=== PATIENT | female | born 1935 | race African-American/Black ===

== ENCOUNTER → 2017-03-06 | Outpatient (CLI) | payer MEDICARE ==
[~2017-03-06] MED LIST: BYSTOLIC; DYAZIDE; LOSARTAN
== END | disposition home or self-care (01) ==
LOC: MAMMO 11:36
PROVIDERS: ATTEND Specialist
DX: Z12.31 Encounter for screening mammogram for malignant neoplasm of breast (principal)
CPT/HCPCS: G0202

== ENCOUNTER → 2018-04-09 | Outpatient (CLI) | payer MEDICARE | END | disposition home or self-care (01) | LOC: MAMMO 07:34 | PROVIDERS: ATTEND Specialist | DX: Z12.31 Encounter for screening mammogram for malignant neoplasm of breast (principal); R92.1 Mammographic calcification found on diagnostic imaging of breast | CPT/HCPCS: 77067 ==

== ENCOUNTER 2018-11-19 17:55 | Inpatient (IN) | payer MEDICARE ==
[~2018-11-19] VITALS: Ht 170.2 cm; Wt 113.4 kg
[2018-11-19] MEDS ORDERED: ALBUTEROL (0.083%) 2.5MG/3ML NEB HHN STA (18:35)
[2018-11-19] MEDS ORDERED: IPRATROPIUM BROMIDE (0.02%) 0.5MG/2.5ML NEB HHN STA (18:35)
[2018-11-19] MEDS ORDERED: FUROSEMIDE 20MG/2ML VIAL IVP ONE (18:45)
[2018-11-19] MEDS ORDERED: LEVOFLOXACIN 500MG PREMIX 100 ML IV ONE (18:45)
[2018-11-19] MEDS ORDERED: ASPIRIN 81MG TABLET PO ONE (18:45)
[2018-11-19 18:51] LABS: HEMATOCRIT. 40.9 % (36.0-48.0); HEMOGLOBIN. 13.5 g/dL (12.0-16.0); MEAN CORPUSCULAR HEMOGLOBIN 30.1 pg (28.0-32.0); MEAN CORPUSCULAR VOLUME 91.2 fL (81.0-99.0); MEAN PLATELET VOLUME 12.5 fl (7.4-10.4); PLATELET 251 x1000/uL (130-400); RED BLOOD CELL COUNT 4.49 mill/uL (4.2-5.4); RED CELL DISTRIBUTION WIDTH 15.4 % (11.6-14.6)
[2018-11-19 18:54] LABS: CHLORIDE 99 mEq/L (98-107)
[2018-11-19] MEDS ORDERED: ALBUTEROL (0.5%) 2.5MG/0.5ML NEB HHN ONE (18:55)
[2018-11-19] MEDS ORDERED: ALBUTEROL (0.083%) 2.5MG/3ML NEB ONE (18:55)
[2018-11-19 18:57] LABS: INR 1.1; PARTIAL THROMBOPLASTIN TIME 27.5 sec (23.4-31.0); PROTHROMBIN TIME 11.5 sec (9.1-11.1)
[2018-11-19 19:39] LABS: PLATELET ESTIMATE NORMAL
[2018-11-19 22:00] VITALS: BP 152/68
[2018-11-19] MEDS ORDERED: IPRATROPIUM/ALBUTEROL 0.5-3(2.5)MG/3ML NEB INH PRN (23:30)
[2018-11-19] MEDS ORDERED: GUAIFENESIN 200MG/10ML SUGAR FREE UDC PO PRN (23:30)
[2018-11-19] MEDS ORDERED: MAGNESIUM/ALUMINUM HYDROXIDE/SIMETHICONE 30ML UDC PO PRN (23:30)
[2018-11-19] MEDS ORDERED: LEVOFLOXACIN 750MG PREMIX 150 ML IV SCH (23:45)
[2018-11-19] MEDS: METHYLPREDNISOLONE SOD SUCC 125 MG/2 ML VIAL IV SCH (23:45)
[2018-11-19] MEDS: SODIUM CHLORIDE 0.9% 1,000 ML IV SCH (23:56)
[2018-11-20] VITALS (13 sets, daily range): BP systolic 116–168; BP diastolic 20–93
[2018-11-20] MEDS: IPRATROPIUM/ALBUTEROL 0.5-3(2.5)MG/3ML NEB INH SCH ×4 (01:32→20:53)
[2018-11-20 03:44] LABS: CLARITY URINE CLOUDY (CLEAR); COLOR URINE DARK YELLOW (YELLOW); KETONES URINE NEGATIVE (NEGATIVE); LEUKOCYTE ESTERASE URINE NEGATIVE (NEGATIVE); NITRITE URINE NEGATIVE (NEGATIVE); OCCULT BLOOD URINE NEGATIVE (NEGATIVE); PROTEIN URINE NEGATIVE (NEGATIVE); SPECIFIC GRAVITY URINE 1.014 (1.005-1.030)
[2018-11-20] MEDS: METHYLPREDNISOLONE SOD SUCC 125 MG/2 ML VIAL IV SCH ×2 (05:54→11:41)
[2018-11-20] MEDS: OMEPRAZOLE 20MG CAPSULE EXTENDED RELEASE PO SCH (05:55)
[2018-11-20 06:06] LABS: HEMATOCRIT. 35.5 % (36.0-48.0); HEMOGLOBIN. 11.8 g/dL (12.0-16.0); MEAN CORPUSCULAR HEMOGLOBIN 30.1 pg (28.0-32.0); MEAN CORPUSCULAR VOLUME 90.4 fL (81.0-99.0); MEAN PLATELET VOLUME 12.4 fl (7.4-10.4); PLATELET 226 x1000/uL (130-400); RED BLOOD CELL COUNT 3.93 mill/uL (4.2-5.4); RED CELL DISTRIBUTION WIDTH 15.2 % (11.6-14.6)
[2018-11-20 06:57] LABS: CHLORIDE 100 mEq/L (98-107)
[2018-11-20 07:05] LABS: PHOSPHORUS 4.8 mg/dL (2.5-4.9)
[2018-11-20 07:10] LABS: T4 FREE 0.69 ng/dL (0.76-1.46)
[2018-11-20] MEDS: GUAIFENESIN 600MG ER TABLET PO SCH ×2 (08:52→21:51)
[2018-11-20 09:13] LABS: CREATINE KINASE 230 IU/L (26-192)
[2018-11-20] MEDS: NEBIVOLOL HCL 5 MG TABLET PO SCH (11:42)
[2018-11-20] MEDS: METHYLPREDNISOLONE SOD SUCC 40 MG/ML VIAL IV SCH ×2 (14:15→21:37)
[2018-11-20] MEDS: AZITHROMYCIN 500 MG TABLET PO SCH (14:15)
[2018-11-20] MEDS: CEFTRIAXONE 1 G PREMIX 50 ML IV SCH (14:16)
[2018-11-20 14:53] LABS: PLATELET ESTIMATE NORMAL
[2018-11-20] MEDS: SODIUM CHLORIDE 0.9% 1,000 ML IV SCH (21:36)
[2018-11-20] MEDS: FLUTICASONE PROPIONATE 50MCG/SPRAY BOTTLE BOTHNSTRLS SCH (21:37)
[2018-11-20] MEDS: AMLODIPINE 5MG TABLET PO SCH (21:40)
[2018-11-21] VITALS (12 sets, daily range): BP systolic 103–161; BP diastolic 64–76
[2018-11-21] MEDS: IPRATROPIUM/ALBUTEROL 0.5-3(2.5)MG/3ML NEB INH SCH ×3 (02:43→20:50)
[2018-11-21] MEDS: METHYLPREDNISOLONE SOD SUCC 40 MG/ML VIAL IV SCH ×2 (05:51→12:15)
[2018-11-21] MEDS: OMEPRAZOLE 20MG CAPSULE EXTENDED RELEASE PO SCH (05:51)
[2018-11-21 07:19] LABS: HEMATOCRIT. 35.8 % (36.0-48.0); HEMOGLOBIN. 11.8 g/dL (12.0-16.0); MEAN CORPUSCULAR HEMOGLOBIN 29.6 pg (28.0-32.0); MEAN CORPUSCULAR VOLUME 90.3 fL (81.0-99.0); MEAN PLATELET VOLUME 11.7 fl (7.4-10.4); PLATELET 248 x1000/uL (130-400); RED BLOOD CELL COUNT 3.97 mill/uL (4.2-5.4); RED CELL DISTRIBUTION WIDTH 15.6 % (11.6-14.6)
[2018-11-21] MEDS: FLUTICASONE PROPIONATE 50MCG/SPRAY BOTTLE BOTHNSTRLS SCH ×2 (08:17→21:51)
[2018-11-21] MEDS: CEFTRIAXONE 1 G PREMIX 50 ML IV SCH (08:17)
[2018-11-21] MEDS: AMLODIPINE 5MG TABLET PO SCH ×2 (08:18→21:53)
[2018-11-21] MEDS: AZITHROMYCIN 500 MG TABLET PO SCH (08:18)
[2018-11-21] MEDS: GUAIFENESIN 600MG ER TABLET PO SCH ×2 (08:18→21:51)
[2018-11-21] MEDS: NEBIVOLOL HCL 5 MG TABLET PO SCH (08:18)
[2018-11-21 10:54] LABS: PLATELET ESTIMATE NORMAL
[2018-11-21] MEDS: SULFACETAMIDE SODIUM 10% OPHTH DROPS 15ML EACHEYE SCH ×4 (11:33→21:51)
[2018-11-21] MEDS: SODIUM CHLORIDE 0.9% 1,000 ML IV SCH (15:23)
[2018-11-21] MEDS ORDERED: LEVOFLOXACIN 500MG PREMIX 100 ML IV SCH (18:00)
[2018-11-21] MEDS: CLONIDINE 0.1MG TABLET PO PRN (18:23)
[2018-11-22] VITALS (13 sets, daily range): BP systolic 118–156; BP diastolic 51–94
[2018-11-22] MEDS: IPRATROPIUM/ALBUTEROL 0.5-3(2.5)MG/3ML NEB INH SCH ×3 (00:31→20:41)
[2018-11-22] MEDS: SODIUM CHLORIDE 0.9% 1,000 ML IV SCH ×2 (01:59→17:00)
[2018-11-22] MEDS: METHYLPREDNISOLONE SOD SUCC 40 MG/ML VIAL IV SCH ×3 (01:59→23:36)
[2018-11-22 07:20] LABS: HEMATOCRIT. 35.3 % (36.0-48.0); HEMOGLOBIN. 11.5 g/dL (12.0-16.0); MEAN CORPUSCULAR HEMOGLOBIN 29.6 pg (28.0-32.0); MEAN CORPUSCULAR VOLUME 90.8 fL (81.0-99.0); PLATELET 244 x1000/uL (130-400); RED BLOOD CELL COUNT 3.89 mill/uL (4.2-5.4); RED CELL DISTRIBUTION WIDTH 15.7 % (11.6-14.6)
[2018-11-22] MEDS: GUAIFENESIN 600MG ER TABLET PO SCH ×2 (08:32→21:00)
[2018-11-22] MEDS: FAMOTIDINE 20MG TABLET PO SCH (08:32)
[2018-11-22] MEDS: AMLODIPINE 5MG TABLET PO SCH ×2 (08:32→21:05)
[2018-11-22] MEDS: AZITHROMYCIN 500 MG TABLET PO SCH (08:32)
[2018-11-22] MEDS: NEBIVOLOL HCL 5 MG TABLET PO SCH (08:32)
[2018-11-22] MEDS: FLUTICASONE PROPIONATE 50MCG/SPRAY BOTTLE BOTHNSTRLS SCH ×2 (08:33→21:05)
[2018-11-22] MEDS: SULFACETAMIDE SODIUM 10% OPHTH DROPS 15ML EACHEYE SCH ×4 (08:33→21:06)
[2018-11-22] MEDS: CEFTRIAXONE 1 G PREMIX 50 ML IV SCH (08:33)
[2018-11-22 09:53] LABS: PLATELET ESTIMATE NORMAL
[2018-11-22] MEDS ORDERED: ONDANSETRON HCL 4MG/2ML INJ IV PRN (19:00)
[2018-11-22 19:06] LABS: ANTI-NUCLEAR ANTIBODIES DIRECT Negative (Negative)
[2018-11-22] MEDS: ONDANSETRON HCL 4MG/2ML INJ IV PRN (19:31)
[2018-11-22] MEDS: METOCLOPRAMIDE HCL 10MG/2ML VIAL IV SCH (23:11)
[2018-11-23] VITALS (12 sets, daily range): BP systolic 121–152; BP diastolic 52–77
[2018-11-23] MEDS: IPRATROPIUM/ALBUTEROL 0.5-3(2.5)MG/3ML NEB INH SCH ×4 (02:45→21:33)
[2018-11-23] MEDS: SODIUM CHLORIDE 0.9% 1,000 ML IV SCH ×2 (05:07→21:42)
[2018-11-23 05:22] LABS: COMPLEMENT C3 186 mg/dL (82-167)
[2018-11-23 06:04] LABS: CHLORIDE 113 mEq/L (98-107)
[2018-11-23 06:08] LABS: AMYLASE 116 IU/L (25-115)
[2018-11-23 06:35] LABS: HEMATOCRIT. 37.1 % (36.0-48.0); MEAN CORPUSCULAR HEMOGLOBIN 29.5 pg (28.0-32.0); MEAN CORPUSCULAR VOLUME 91.1 fL (81.0-99.0); MEAN PLATELET VOLUME 11.3 fl (7.4-10.4); PLATELET 243 x1000/uL (130-400); RED BLOOD CELL COUNT 4.07 mill/uL (4.2-5.4); RED CELL DISTRIBUTION WIDTH 15.2 % (11.6-14.6)
[2018-11-23] MEDS: METOCLOPRAMIDE HCL 10MG/2ML VIAL IV SCH ×3 (06:41→17:34)
[2018-11-23] MEDS: MORPHINE SULFATE 4 MG/ML CPJ (NOT FOR IM USE) IV PRN (06:45)
[2018-11-23] MEDS: GUAIFENESIN 600MG ER TABLET PO SCH ×2 (09:00→21:38)
[2018-11-23] MEDS: AZITHROMYCIN 500 MG TABLET PO SCH (09:00)
[2018-11-23] MEDS: NEBIVOLOL HCL 5 MG TABLET PO SCH (09:00)
[2018-11-23] MEDS: ONDANSETRON HCL 4MG/2ML INJ IV PRN (09:02)
[2018-11-23] MEDS: FAMOTIDINE 20MG TABLET PO SCH (09:02)
[2018-11-23] MEDS: CEFTRIAXONE 1 G PREMIX 50 ML IV SCH (09:03)
[2018-11-23] MEDS: FLUTICASONE PROPIONATE 50MCG/SPRAY BOTTLE BOTHNSTRLS SCH (09:04)
[2018-11-23] MEDS: SULFACETAMIDE SODIUM 10% OPHTH DROPS 15ML EACHEYE SCH ×4 (09:04→21:39)
[2018-11-23] MEDS: AMLODIPINE 5MG TABLET PO SCH ×2 (10:34→21:38)
[2018-11-23] MEDS: METHYLPREDNISOLONE SOD SUCC 40 MG/ML VIAL IV SCH (12:11)
[2018-11-24] VITALS (13 sets, daily range): BP systolic 128–168; BP diastolic 58–88
[2018-11-24] MEDS ORDERED: METRONIDAZOLE 1000 MG PREMIX 200 ML IV SCH (00:15)
[2018-11-24] MEDS: METOCLOPRAMIDE HCL 10MG/2ML VIAL IV SCH ×5 (00:31→23:55)
[2018-11-24] MEDS: METHYLPREDNISOLONE SOD SUCC 40 MG/ML VIAL IV SCH ×3 (00:31→23:55)
[2018-11-24] MEDS ORDERED: METRONIDAZOLE 500 MG IV SCH (02:00)
[2018-11-24] MEDS: IPRATROPIUM/ALBUTEROL 0.5-3(2.5)MG/3ML NEB INH SCH ×2 (02:02→19:58)
[2018-11-24] MEDS: MORPHINE SULFATE 4 MG/ML CPJ (NOT FOR IM USE) IV PRN (03:01)
[2018-11-24] MEDS ORDERED: DOCUSATE SODIUM 100MG CAPSULE PO SCH (05:30)
[2018-11-24 07:57] LABS: HEMATOCRIT. 38.5 % (36.0-48.0); HEMOGLOBIN. 12.4 g/dL (12.0-16.0); MEAN CORPUSCULAR HEMOGLOBIN 29.5 pg (28.0-32.0); MEAN CORPUSCULAR VOLUME 91.6 fL (81.0-99.0); MEAN PLATELET VOLUME 11.3 fl (7.4-10.4); PLATELET 252 x1000/uL (130-400); RED BLOOD CELL COUNT 4.21 mill/uL (4.2-5.4); RED CELL DISTRIBUTION WIDTH 15.2 % (11.6-14.6)
[2018-11-24] MEDS: METRONIDAZOLE 500 MG PREMIX 100 ML IV SCH ×3 (08:16→20:05)
[2018-11-24] MEDS: SODIUM CHLORIDE 0.45% 1,000 ML IV SCH ×2 (08:17→22:46)
[2018-11-24] MEDS: AZITHROMYCIN 500 MG TABLET PO SCH (09:09)
[2018-11-24] MEDS: SULFACETAMIDE SODIUM 10% OPHTH DROPS 15ML EACHEYE SCH ×4 (09:09→21:52)
[2018-11-24] MEDS: AMLODIPINE 5MG TABLET PO SCH ×2 (09:09→21:51)
[2018-11-24] MEDS: NEBIVOLOL HCL 5 MG TABLET PO SCH (09:10)
[2018-11-24] MEDS: FAMOTIDINE 20MG TABLET PO SCH (09:10)
[2018-11-24] MEDS: GUAIFENESIN 600MG ER TABLET PO SCH ×2 (09:17→21:51)
[2018-11-24] MEDS: CEFTRIAXONE 1 G PREMIX 50 ML IV SCH (09:17)
[2018-11-24] MEDS ORDERED: NA PHOS,M-B/NA PHOS,DI-BA ENEMA 118ML PR NR (09:45)
[2018-11-24 11:14] LABS: PLATELET ESTIMATE NORMAL
[2018-11-24] MEDS ORDERED: VANCOMYCIN 1250MG in DEXTROSE 5% WATER 250ML IV SCH (13:00)
[2018-11-24 16:09] LABS: PLATELET ESTIMATE NORMAL
[2018-11-24] MEDS: DOCUSATE SODIUM 250MG CAPSULE PO SCH (16:52)
[2018-11-24] MEDS: CEFEPIME 1,000 MG in DEXTROSE 5% WATER 50 ML IV SCH (16:53)
[2018-11-24] MEDS: HYDROMORPHONE HCL/PF 2MG/ML CPJ IV PRN (20:06)
[2018-11-25] VITALS (12 sets, daily range): BP systolic 122–164; BP diastolic 69–90
[2018-11-25] MEDS: IPRATROPIUM/ALBUTEROL 0.5-3(2.5)MG/3ML NEB INH SCH ×4 (01:33→20:00)
[2018-11-25] MEDS: METRONIDAZOLE 500 MG PREMIX 100 ML IV SCH ×4 (02:28→20:38)
[2018-11-25] MEDS: METOCLOPRAMIDE HCL 10MG/2ML VIAL IV SCH ×3 (05:44→17:02)
[2018-11-25 06:05] LABS: HEMATOCRIT. 38.6 % (36.0-48.0); HEMOGLOBIN. 12.2 g/dL (12.0-16.0); MEAN CORPUSCULAR HEMOGLOBIN 29.4 pg (28.0-32.0); MEAN CORPUSCULAR VOLUME 93.3 fL (81.0-99.0); MEAN PLATELET VOLUME 10.8 fl (7.4-10.4); PLATELET 229 x1000/uL (130-400); RED BLOOD CELL COUNT 4.14 mill/uL (4.2-5.4); RED CELL DISTRIBUTION WIDTH 15.7 % (11.6-14.6)
[2018-11-25] MEDS: SULFACETAMIDE SODIUM 10% OPHTH DROPS 15ML EACHEYE SCH ×4 (08:31→20:38)
[2018-11-25] MEDS: DOCUSATE SODIUM 250MG CAPSULE PO SCH ×2 (08:31→16:53)
[2018-11-25] MEDS: FAMOTIDINE 20MG TABLET PO SCH (08:32)
[2018-11-25] MEDS: GUAIFENESIN 600MG ER TABLET PO SCH ×2 (08:32→20:38)
[2018-11-25] MEDS: AZITHROMYCIN 500 MG TABLET PO SCH (08:32)
[2018-11-25] MEDS: AMLODIPINE 5MG TABLET PO SCH ×2 (08:32→20:38)
[2018-11-25] MEDS: NEBIVOLOL HCL 5 MG TABLET PO SCH (08:32)
[2018-11-25] MEDS: SODIUM CHLORIDE 0.45% 1,000 ML IV SCH ×2 (08:45→12:21)
[2018-11-25] MEDS: MORPHINE SULFATE 4 MG/ML CPJ (NOT FOR IM USE) IV PRN ×2 (08:45→15:46)
[2018-11-25] MEDS: CEFEPIME 1,000 MG in DEXTROSE 5% WATER 50 ML IV SCH (11:58)
[2018-11-25] MEDS: VANCOMYCIN 750 MG PREMIX 150 ML IV SCH (13:33)
[2018-11-25] MEDS: HYDROMORPHONE HCL/PF 2MG/ML CPJ IV PRN (17:57)
[2018-11-25 20:36] LABS: PLATELET ESTIMATE NORMAL
[2018-11-26] VITALS (10 sets, daily range): BP systolic 124–150; BP diastolic 64–84
[2018-11-26] MEDS: METOCLOPRAMIDE HCL 10MG/2ML VIAL IV SCH ×4 (01:05→17:15)
[2018-11-26] MEDS: IPRATROPIUM/ALBUTEROL 0.5-3(2.5)MG/3ML NEB INH SCH ×4 (01:50→20:25)
[2018-11-26] MEDS: SODIUM CHLORIDE 0.45% 1,000 ML IV SCH (03:04)
[2018-11-26] MEDS: METRONIDAZOLE 500 MG PREMIX 100 ML IV SCH ×4 (03:07→20:00)
[2018-11-26] MEDS: HYDROMORPHONE HCL/PF 2MG/ML CPJ IV PRN ×2 (06:41→11:00)
[2018-11-26 07:07] LABS: HEMATOCRIT. 39.4 % (36.0-48.0); HEMOGLOBIN. 12.9 g/dL (12.0-16.0); MEAN PLATELET VOLUME 10.7 fl (7.4-10.4); PLATELET 205 x1000/uL (130-400); RED BLOOD CELL COUNT 4.29 mill/uL (4.2-5.4); RED CELL DISTRIBUTION WIDTH 15.9 % (11.6-14.6)
[2018-11-26] MEDS: AMLODIPINE 5MG TABLET PO SCH ×2 (08:19→22:08)
[2018-11-26] MEDS: NEBIVOLOL HCL 5 MG TABLET PO SCH (08:19)
[2018-11-26] MEDS: SULFACETAMIDE SODIUM 10% OPHTH DROPS 15ML EACHEYE SCH ×4 (08:20→22:09)
[2018-11-26] MEDS: DOCUSATE SODIUM 250MG CAPSULE PO SCH ×2 (08:20→17:15)
[2018-11-26] MEDS: GUAIFENESIN 600MG ER TABLET PO SCH ×2 (08:20→22:08)
[2018-11-26] MEDS: FAMOTIDINE 20MG TABLET PO SCH (08:20)
[2018-11-26] MEDS: AZITHROMYCIN 500 MG TABLET PO SCH (08:20)
[2018-11-26] MEDS ORDERED: PREDNISONE 20MG TABLET PO SCH (09:00)
[2018-11-26] MEDS: CEFEPIME 1,000 MG in DEXTROSE 5% WATER 50 ML IV SCH (10:40)
[2018-11-26] MEDS: VANCOMYCIN 750 MG PREMIX 150 ML IV SCH (12:34)
[2018-11-26 14:03] LABS: PLATELET ESTIMATE NORMAL
[2018-11-26] MEDS: BISACODYL 5MG TABLET PO PRN (14:38)
[2018-11-26] MEDS ORDERED: ENOXAPARIN 30MG/0.3ML SYR SUBCUT SCH (16:00)
[2018-11-26] MEDS: MORPHINE SULFATE 4 MG/ML CPJ (NOT FOR IM USE) IV PRN (17:17)
[2018-11-27] VITALS (8 sets, daily range): BP systolic 118–152; BP diastolic 48–91
[2018-11-27] MEDS: IPRATROPIUM/ALBUTEROL 0.5-3(2.5)MG/3ML NEB INH SCH ×4 (00:35→20:45)
[2018-11-27] MEDS: MORPHINE SULFATE 4 MG/ML CPJ (NOT FOR IM USE) IV PRN (00:38)
[2018-11-27] MEDS: METOCLOPRAMIDE HCL 10MG/2ML VIAL IV SCH ×4 (00:58→17:44)
[2018-11-27] MEDS: CLONIDINE 0.1MG TABLET PO PRN (01:10)
[2018-11-27 06:41] LABS: HEMATOCRIT. 38.1 % (36.0-48.0); HEMOGLOBIN. 12.2 g/dL (12.0-16.0); MEAN CORPUSCULAR HEMOGLOBIN 30.1 pg (28.0-32.0); MEAN CORPUSCULAR VOLUME 93.7 fL (81.0-99.0); MEAN PLATELET VOLUME 10.6 fl (7.4-10.4); PLATELET 164 x1000/uL (130-400); RED BLOOD CELL COUNT 4.07 mill/uL (4.2-5.4); RED CELL DISTRIBUTION WIDTH 15.4 % (11.6-14.6)
[2018-11-27 07:35] LABS: CHLORIDE 109 mEq/L (98-107)
[2018-11-27] MEDS: METRONIDAZOLE 500 MG PREMIX 100 ML IV SCH ×3 (07:55→21:45)
[2018-11-27] MEDS: SODIUM CHLORIDE 0.45% 1,000 ML IV SCH (07:55)
[2018-11-27] MEDS: PREDNISONE 20MG TABLET PO SCH (08:25)
[2018-11-27] MEDS: AZITHROMYCIN 500 MG TABLET PO SCH (08:25)
[2018-11-27] MEDS: SULFACETAMIDE SODIUM 10% OPHTH DROPS 15ML EACHEYE SCH ×4 (08:25→21:45)
[2018-11-27] MEDS: DOCUSATE SODIUM 250MG CAPSULE PO SCH ×2 (08:25→17:44)
[2018-11-27] MEDS: BISACODYL 5MG TABLET PO PRN (08:26)
[2018-11-27] MEDS: FAMOTIDINE 20MG TABLET PO SCH (08:26)
[2018-11-27] MEDS: AMLODIPINE 5MG TABLET PO SCH ×2 (08:26→21:43)
[2018-11-27] MEDS: GUAIFENESIN 600MG ER TABLET PO SCH ×2 (08:26→21:43)
[2018-11-27] MEDS: NEBIVOLOL HCL 5 MG TABLET PO SCH (08:27)
[2018-11-27] MEDS: CEFEPIME 1,000 MG in DEXTROSE 5% WATER 50 ML IV SCH (12:08)
[2018-11-27 12:13] LABS: PLATELET ESTIMATE NORMAL
[2018-11-27] MEDS: VANCOMYCIN 750 MG PREMIX 150 ML IV SCH (13:16)
[2018-11-28] VITALS (12 sets, daily range): BP systolic 119–152; BP diastolic 43–86
[2018-11-28] MEDS: METOCLOPRAMIDE HCL 10MG/2ML VIAL IV SCH ×4 (00:01→17:27)
[2018-11-28] MEDS: IPRATROPIUM/ALBUTEROL 0.5-3(2.5)MG/3ML NEB INH SCH ×4 (01:53→20:18)
[2018-11-28] MEDS ORDERED: LIDOCAINE HCL 1% 20ML VIAL (Pyxis) INJ ONE (07:45)
[2018-11-28] MEDS ORDERED: SODIUM BICARBONATE 4% (2.4MEQ) 5ML VIAL IV ONE (07:45)
[2018-11-28] MEDS: AMLODIPINE 5MG TABLET PO SCH ×2 (07:52→21:05)
[2018-11-28] MEDS: DOCUSATE SODIUM 250MG CAPSULE PO SCH ×2 (07:52→17:27)
[2018-11-28] MEDS: PREDNISONE 20MG TABLET PO SCH (07:52)
[2018-11-28] MEDS: SULFACETAMIDE SODIUM 10% OPHTH DROPS 15ML EACHEYE SCH (07:52)
[2018-11-28] MEDS: NEBIVOLOL HCL 5 MG TABLET PO SCH (07:52)
[2018-11-28] MEDS: FAMOTIDINE 20MG TABLET PO SCH (07:53)
[2018-11-28] MEDS: BISACODYL 5MG TABLET PO PRN (07:53)
[2018-11-28] MEDS: GUAIFENESIN 600MG ER TABLET PO SCH ×2 (07:53→21:05)
[2018-11-28 08:12] LABS: HEMATOCRIT. 38.5 % (36.0-48.0); HEMOGLOBIN. 12.1 g/dL (12.0-16.0); MEAN CORPUSCULAR HEMOGLOBIN 29.7 pg (28.0-32.0); MEAN CORPUSCULAR VOLUME 94.4 fL (81.0-99.0); MEAN PLATELET VOLUME 10.4 fl (7.4-10.4); PLATELET 183 x1000/uL (130-400); RED BLOOD CELL COUNT 4.07 mill/uL (4.2-5.4); RED CELL DISTRIBUTION WIDTH 15.2 % (11.6-14.6)
[2018-11-28] MEDS: METRONIDAZOLE 500 MG PREMIX 100 ML IV SCH ×2 (09:41→21:05)
[2018-11-28 10:00] LABS: PLATELET ESTIMATE NORMAL
[2018-11-28] MEDS: CEFEPIME 1,000 MG in DEXTROSE 5% WATER 50 ML IV SCH (12:38)
[2018-11-28] MEDS: VANCOMYCIN 750 MG PREMIX 150 ML IV SCH (12:38)
[2018-11-28] MEDS ORDERED: METRONIDAZOLE 500 MG PREMIX 100 ML IV SCH (21:00)
[2018-11-29] VITALS (16 sets, daily range): BP systolic 23–183; BP diastolic 23–116
[2018-11-29] MEDS: METOCLOPRAMIDE HCL 10MG/2ML VIAL IV SCH ×4 (00:16→23:10)
[2018-11-29] MEDS: IPRATROPIUM/ALBUTEROL 0.5-3(2.5)MG/3ML NEB INH SCH ×4 (01:22→20:46)
[2018-11-29 06:38] LABS: HEMATOCRIT. 34.8 % (36.0-48.0); HEMOGLOBIN. 11.4 g/dL (12.0-16.0); MEAN CORPUSCULAR HEMOGLOBIN 30.1 pg (28.0-32.0); PLATELET 150 x1000/uL (130-400); RED BLOOD CELL COUNT 3.78 mill/uL (4.2-5.4); RED CELL DISTRIBUTION WIDTH 15.2 % (11.6-14.6)
[2018-11-29] MEDS: FAMOTIDINE 20MG TABLET PO SCH (08:09)
[2018-11-29] MEDS: GUAIFENESIN 600MG ER TABLET PO SCH (08:09)
[2018-11-29] MEDS: DOCUSATE SODIUM 250MG CAPSULE PO SCH (08:09)
[2018-11-29] MEDS: AMLODIPINE 5MG TABLET PO SCH ×2 (08:09→21:00)
[2018-11-29] MEDS: NEBIVOLOL HCL 5 MG TABLET PO SCH (08:10)
[2018-11-29] MEDS: PREDNISONE 20MG TABLET PO SCH (08:10)
[2018-11-29] MEDS: METRONIDAZOLE 500 MG PREMIX 100 ML IV SCH ×2 (08:13→23:00)
[2018-11-29] MEDS: CEFEPIME 1,000 MG in DEXTROSE 5% WATER 50 ML IV SCH (10:09)
[2018-11-29] MEDS: MORPHINE SULFATE 4 MG/ML CPJ (NOT FOR IM USE) IV PRN ×2 (10:48→22:39)
[2018-11-29] MEDS: VANCOMYCIN 750 MG PREMIX 150 ML IV SCH (12:41)
[2018-11-29] MEDS ORDERED: ALBUMIN HUMAN 12.5G/250ML (5%) IV ONE (12:59)
[2018-11-29] MEDS ORDERED: POTASSIUM CHLORIDE 20MEQ TABLET SR PO NR (13:00)
[2018-11-29] MEDS ORDERED: IOHEXOL-300 100 ML BOTTLE ONE (13:09)
[2018-11-29] MEDS ORDERED: FENTANYL CITRATE/PF 50MCG/ML 2ML VIAL ONE ×2 (13:12→14:07)
[2018-11-29] MEDS ORDERED: EPHEDRINE SULFATE 50MG/ML VIAL ONE (13:12)
[2018-11-29] MEDS ORDERED: GLYCOPYRROLATE 0.2 MG/ML 2ML VIAL ONE (13:12)
[2018-11-29] MEDS ORDERED: NEOSTIGMINE METHYLSULFATE 1MG/ML 10 ML VIAL ONE (13:12)
[2018-11-29] MEDS ORDERED: ROCURONIUM BROMIDE 10MG/ML VIAL 5ML IV ONE ×2 (13:12→14:11)
[2018-11-29] MEDS ORDERED: PHENYLEPHRINE HCL 10 MG/ML 1ML (IV VIAL) IV ONE (13:12)
[2018-11-29] MEDS ORDERED: ONDANSETRON HCL 4MG/2ML INJ ONE (13:12)
[2018-11-29] MEDS ORDERED: SUCCINYLCHOLINE CHLORIDE 200MG/10ML IV ONE (13:12)
[2018-11-29] MEDS ORDERED: PROPOFOL 200MG/20ML VIAL IV ONE (13:12)
[2018-11-29] MEDS ORDERED: SODIUM CHLORIDE 0.9% 10ML VIAL ONE (13:12)
[2018-11-29] MEDS ORDERED: MIDAZOLAM HCL 2 MG/2 ML VIAL ONE (13:12)
[2018-11-29] MEDS ORDERED: METOCLOPRAMIDE HCL 10MG/2ML VIAL ONE (13:12)
[2018-11-29] MEDS ORDERED: ETOMIDATE 2MG/ML 10ML VIAL IV ONE (13:13)
[2018-11-29] MEDS ORDERED: BUPIVACAINE HCL 0.5% (5MG/ML) 50ML ONE (13:14)
[2018-11-29] MEDS ORDERED: BACITRACIN 50,000 UNITS/VIAL ONE (13:15)
[2018-11-29] MEDS ORDERED: ONDANSETRON HCL 4MG/2ML INJ IV PRN ×2 (15:00→15:15)
[2018-11-29] MEDS ORDERED: ACETAMINOPHEN 650MG SUPP PR PRN (15:00)
[2018-11-29] MEDS ORDERED: SODIUM CHLORIDE 0.9% 1,000 ML IV ONE (15:01)
[2018-11-29] MEDS ORDERED: HYDROMORPHONE HCL/PF 2MG/ML CPJ IV PRN (15:15)
[2018-11-29] MEDS ORDERED: MORPHINE SULFATE 2 MG/ML CPJ (NOT FOR IM USE) IV PRN (15:15)
[2018-11-29] MEDS ORDERED: MEPERIDINE HCL/PF 25MG/ML CPJ IV PRN (15:15)
[2018-11-29] MEDS ORDERED: METRONIDAZOLE 500 MG PREMIX 100 ML IV SCH (16:00)
[2018-11-29 16:27] LABS: HEMATOCRIT 36.6 % (36.0-48.0); HEMOGLOBIN 11.7 g/dL (12.0-16.0); MEAN CORPUSCULAR HEMOGLOBIN 29.9 pg (28.0-32.0); MEAN CORPUSCULAR VOLUME 93.5 fL (81.0-99.0); PLATELET 171 x1000/uL (130-400); RED BLOOD CELL COUNT 3.91 mill/uL (4.2-5.4); RED CELL DISTRIBUTION WIDTH 15.6 % (11.6-14.6)
[2018-11-29 17:57] LABS: BG BASE EXCESS -11.9 mmol/L (-2.0-2.0); BG CARBOXYHEMOGLOBIN 0.3 % (0.5-1.5); BG DEOXYHEMOGLOBIN 5.1 % (0.0-5.0); BG FRACTION INSPIRED OXYGEN 50; BG HCO3 ACT 14.5 mmol/L (22.0-26.0); BG METHEMOGLOBIN 0.2 % (0.0-1.5); BG OXYGEN SATURATION 94.9 % (92.0-98.5); BG OXYHEMOGLOBIN 94.4 % (94.0-97.0); BG PCO2 34.5 mmHg (35.0-45.0); BG PH 7.241 (7.350-7.450); BG PO2 83.6 mmHg (75.0-100.0); BG SAMPLE SITE A-LINE; BG TIDAL VOLUME(mL) 500 mL; BG TOTAL HEMOGLOBIN 11.2 g/dL (12.0-18.0); BG VENT MODE VENT - A/C; BG VENT RATE 10 set
[2018-11-29] MEDS ORDERED: ALBUMIN HUMAN 25GM/500ML (5%) IV ONE (19:00)
[2018-11-29] MEDS ORDERED: ALBUMIN HUMAN 25GM/500ML (5%) IV SCH (19:00)
[2018-11-29] MEDS ORDERED: NOREPINEPHRINE 8 MG in DEXTROSE 5% WATER 250 ML IV PRN (19:45)
[2018-11-29 20:56] LABS: BG BASE EXCESS -12.2 mmol/L (-2.0-2.0); BG CARBOXYHEMOGLOBIN 0.3 % (0.5-1.5); BG FRACTION INSPIRED OXYGEN 50; BG METHEMOGLOBIN 0.4 % (0.0-1.5); BG OXYHEMOGLOBIN 98.3 % (94.0-97.0); BG PCO2 27.5 mmHg (35.0-45.0); BG PH 7.293 (7.350-7.450); BG PO2 185.2 mmHg (75.0-100.0); BG SAMPLE SITE A-LINE; BG TIDAL VOLUME(mL) 500 mL; BG VENT MODE VENT - A/C
[2018-11-29] MEDS: DEXT 5%/0.45% NACL KCL 20MEQ/L 1,000 ML IV SCH (22:35)
[2018-11-29] MEDS: FAMOTIDINE 20MG/2ML VIAL IV SCH (23:11)
[2018-11-29] MEDS: PROPOFOL 10MG/ML 100ML 100 ML IV PRN (23:14)
[2018-11-30] VITALS (92 sets, daily range): BP systolic 62–159; BP diastolic 29–90
[2018-11-30] MEDS: DOCUSATE SODIUM 250MG CAPSULE PO SCH ×3 (00:59→17:00)
[2018-11-30] MEDS: GUAIFENESIN 600MG ER TABLET PO SCH ×3 (01:01→21:00)
[2018-11-30] MEDS: DEXT 5%/0.45% NACL KCL 20MEQ/L 1,000 ML IV SCH ×3 (01:02→21:35)
[2018-11-30] MEDS: IPRATROPIUM/ALBUTEROL 0.5-3(2.5)MG/3ML NEB INH SCH ×4 (03:01→20:10)
[2018-11-30] MEDS: MEROPENEM 1,000 MG in SODIUM CHLORIDE 0.9% 100 ML IV SCH ×2 (03:36→15:46)
[2018-11-30] MEDS: FLUCONAZOLE 400MG/200ML BAG 200 ML IV SCH (03:40)
[2018-11-30] MEDS: MORPHINE SULFATE 4 MG/ML CPJ (NOT FOR IM USE) IV PRN (03:42)
[2018-11-30] MEDS: METOCLOPRAMIDE HCL 10MG/2ML VIAL IV SCH ×5 (05:45→23:07)
[2018-11-30 08:18] LABS: HEMATOCRIT. 29.9 % (36.0-48.0); HEMOGLOBIN. 9.6 g/dL (12.0-16.0); MEAN CORPUSCULAR HEMOGLOBIN 30.5 pg (28.0-32.0); MEAN CORPUSCULAR VOLUME 95.3 fL (81.0-99.0); MEAN PLATELET VOLUME 9.4 fl (7.4-10.4); RED BLOOD CELL COUNT 3.14 mill/uL (4.2-5.4); RED CELL DISTRIBUTION WIDTH 15.4 % (11.6-14.6)
[2018-11-30 08:25] LABS: PLATELET 37 x1000/uL (130-400)
[2018-11-30] MEDS: PROPOFOL 10MG/ML 100ML 100 ML IV PRN ×3 (08:35→23:07)
[2018-11-30 08:54] LABS: BG BASE EXCESS -11.6 mmol/L (-2.0-2.0); BG DEOXYHEMOGLOBIN 2.1 % (0.0-5.0); BG FRACTION INSPIRED OXYGEN 50; BG HCO3 ACT 12.3 mmol/L (22.0-26.0); BG METHEMOGLOBIN 0.4 % (0.0-1.5); BG OXYGEN SATURATION 97.9 % (92.0-98.5); BG OXYHEMOGLOBIN 97.5 % (94.0-97.0); BG PCO2 21.7 mmHg (35.0-45.0); BG PO2 108.5 mmHg (75.0-100.0); BG SAMPLE SITE A-LINE; BG TIDAL VOLUME(mL) 500 mL; BG TOTAL HEMOGLOBIN 8.5 g/dL (12.0-18.0); BG VENT MODE VENT - A/C; BG VENT RATE 16 set
[2018-11-30] MEDS ORDERED: MEROPENEM 1,000 MG in SODIUM CHLORIDE 0.9% 100 ML IV SCH (09:00)
[2018-11-30] MEDS: AMLODIPINE 5MG TABLET PO SCH (09:00)
[2018-11-30] MEDS ORDERED: FLUCONAZOLE 400MG/200ML BAG 200 ML IV SCH (09:15)
[2018-11-30 09:50] LABS: PLATELET ESTIMATE MARKEDLY DECREASED
[2018-11-30 13:46] LABS: PLATELET ESTIMATE NORMAL
[2018-11-30] MEDS: FAMOTIDINE 20MG/2ML VIAL IV SCH (16:11)
[2018-12-01] VITALS (64 sets, daily range): BP systolic 83–175; BP diastolic 36–148
[2018-12-01] MEDS: IPRATROPIUM/ALBUTEROL 0.5-3(2.5)MG/3ML NEB INH SCH ×4 (01:48→20:28)
[2018-12-01] MEDS: FLUCONAZOLE 400MG/200ML BAG 200 ML IV SCH (02:56)
[2018-12-01] MEDS: MEROPENEM 1,000 MG in SODIUM CHLORIDE 0.9% 100 ML IV SCH ×2 (04:05→18:51)
[2018-12-01] MEDS: PROPOFOL 10MG/ML 100ML 100 ML IV PRN ×3 (05:01→16:31)
[2018-12-01] MEDS: METOCLOPRAMIDE HCL 10MG/2ML VIAL IV SCH ×3 (05:57→18:51)
[2018-12-01 06:36] LABS: PHOSPHORUS 1.6 mg/dL (2.5-4.9)
[2018-12-01 06:46] LABS: HEMATOCRIT. 23.2 % (36.0-48.0); HEMOGLOBIN. 7.7 g/dL (12.0-16.0); MEAN CORPUSCULAR HEMOGLOBIN 30.6 pg (28.0-32.0); MEAN CORPUSCULAR VOLUME 92.5 fL (81.0-99.0); RED BLOOD CELL COUNT 2.51 mill/uL (4.2-5.4); RED CELL DISTRIBUTION WIDTH 15.5 % (11.6-14.6)
[2018-12-01 06:54] LABS: PLATELET 21 x1000/uL (130-400)
[2018-12-01] MEDS: DEXT 5%/0.45% NACL 1000ML 1,000 ML IV SCH ×2 (07:00→08:52)
[2018-12-01] MEDS ORDERED: CALCIUM GLUCONATE 1,000 MG in DEXT 5% WATER 90 ML IV SCH (07:30)
[2018-12-01 08:44] LABS: BG BASE EXCESS -8.6 mmol/L (-2.0-2.0); BG CARBOXYHEMOGLOBIN 0.3 % (0.5-1.5); BG FRACTION INSPIRED OXYGEN 50; BG HCO3 ACT 15.1 mmol/L (22.0-26.0); BG METHEMOGLOBIN 0.3 % (0.0-1.5); BG OXYHEMOGLOBIN 98.4 % (94.0-97.0); BG PCO2 25.8 mmHg (35.0-45.0); BG PH 7.386 (7.350-7.450); BG PO2 177.5 mmHg (75.0-100.0); BG SAMPLE SITE A-LINE; BG TIDAL VOLUME(mL) 500 mL; BG TOTAL HEMOGLOBIN 9.9 g/dL (12.0-18.0); BG VENT MODE VENT - A/C; BG VENT RATE 16 set
[2018-12-01] MEDS: GUAIFENESIN 600MG ER TABLET PO SCH ×2 (08:45→20:30)
[2018-12-01] MEDS: DOCUSATE SODIUM 250MG CAPSULE PO SCH ×2 (08:45→17:00)
[2018-12-01 10:33] LABS: PLATELET ESTIMATE MARKEDLY DECREASED
[2018-12-01 10:36] LABS: BG BASE EXCESS -9.5 mmol/L (-2.0-2.0); BG CARBOXYHEMOGLOBIN 0.3 % (0.5-1.5); BG DEOXYHEMOGLOBIN 2.7 % (0.0-5.0); BG FRACTION INSPIRED OXYGEN 50; BG HCO3 ACT 14.4 mmol/L (22.0-26.0); BG METHEMOGLOBIN 0.3 % (0.0-1.5); BG OXYGEN SATURATION 97.3 % (92.0-98.5); BG OXYHEMOGLOBIN 96.7 % (94.0-97.0); BG PH 7.378 (7.350-7.450); BG PO2 98.2 mmHg (75.0-100.0); BG PRESSURE SUPPORT 14; BG SAMPLE SITE A-LINE; BG TIDAL VOLUME(mL) 500 mL; BG TOTAL HEMOGLOBIN 8.7 g/dL (12.0-18.0); BG VENT MODE VENT - SIMV; BG VENT RATE 10 set
[2018-12-01] MEDS: FAMOTIDINE 20MG/2ML VIAL IV SCH (18:51)
[2018-12-02] VITALS (91 sets, daily range): BP systolic 85–185; BP diastolic -3–114
[2018-12-02] MEDS: METOCLOPRAMIDE HCL 10MG/2ML VIAL IV SCH ×4 (00:43→17:55)
[2018-12-02] MEDS: PROPOFOL 10MG/ML 100ML 100 ML IV PRN ×2 (01:02→06:01)
[2018-12-02] MEDS: FLUCONAZOLE 400MG/200ML BAG 200 ML IV SCH (02:04)
[2018-12-02] MEDS: IPRATROPIUM/ALBUTEROL 0.5-3(2.5)MG/3ML NEB INH SCH ×4 (02:30→20:27)
[2018-12-02] MEDS: MEROPENEM 1,000 MG in SODIUM CHLORIDE 0.9% 100 ML IV SCH ×2 (04:10→17:55)
[2018-12-02 05:37] LABS: HEMATOCRIT. 26.1 % (36.0-48.0); HEMOGLOBIN. 8.6 g/dL (12.0-16.0); MEAN CORPUSCULAR HEMOGLOBIN 30.1 pg (28.0-32.0); MEAN CORPUSCULAR VOLUME 90.9 fL (81.0-99.0); PLATELET 111 x1000/uL (130-400); RED BLOOD CELL COUNT 2.87 mill/uL (4.2-5.4); RED CELL DISTRIBUTION WIDTH 15.8 % (11.6-14.6)
[2018-12-02 06:38] LABS: PHOSPHORUS 2.4 mg/dL (2.5-4.9)
[2018-12-02 07:02] LABS: PLATELET ESTIMATE SLIGHTLY DECREASED
[2018-12-02 09:00] LABS: BG BASE EXCESS -10.1 mmol/L (-2.0-2.0); BG DEOXYHEMOGLOBIN 1.3 % (0.0-5.0); BG FRACTION INSPIRED OXYGEN 40; BG HCO3 ACT 13.7 mmol/L (22.0-26.0); BG METHEMOGLOBIN 0.3 % (0.0-1.5); BG OXYGEN SATURATION 98.7 % (92.0-98.5); BG OXYHEMOGLOBIN 98.4 % (94.0-97.0); BG PH 7.374 (7.350-7.450); BG PRESSURE SUPPORT 14; BG SAMPLE SITE A-LINE; BG TIDAL VOLUME(mL) 500 mL; BG TOTAL HEMOGLOBIN 9.9 g/dL (12.0-18.0); BG VENT MODE VENT - SIMV; BG VENT RATE 10 set
[2018-12-02] MEDS: DOCUSATE SODIUM 250MG CAPSULE PO SCH ×2 (09:00→17:00)
[2018-12-02] MEDS: GUAIFENESIN 600MG ER TABLET PO SCH ×2 (09:00→20:52)
[2018-12-02] MEDS ORDERED: MAGNESIUM 2 G PREMIX 50 ML IV NR (09:00)
[2018-12-02] MEDS ORDERED: POTASSIUM PHOS,M-BASIC-D-BASIC 20 MMOL in DEXT 5% WATER 243.3333 ML IV NR (09:00)
[2018-12-02] MEDS: FENTANYL CITRATE/PF 500 MCG in SODIUM CHLORIDE 0.9% 40 ML IV PRN ×2 (13:55→18:14)
[2018-12-02] MEDS ORDERED: LORAZEPAM 2MG/ML CPJ IV PRN (15:15)
[2018-12-02] MEDS: FAMOTIDINE 20MG/2ML VIAL IV SCH (16:00)
[2018-12-02] MEDS: DEXT 5%/0.45% NACL 1000ML 1,000 ML IV SCH (17:55)
[2018-12-02 18:58] LABS: BG BASE EXCESS -10.2 mmol/L (-2.0-2.0); BG CARBOXYHEMOGLOBIN 0.3 % (0.5-1.5); BG DEOXYHEMOGLOBIN 4.7 % (0.0-5.0); BG FRACTION INSPIRED OXYGEN 40; BG HCO3 ACT 14.8 mmol/L (22.0-26.0); BG METHEMOGLOBIN 0.4 % (0.0-1.5); BG OXYGEN SATURATION 95.3 % (92.0-98.5); BG OXYHEMOGLOBIN 94.6 % (94.0-97.0); BG PH 7.312 (7.350-7.450); BG PO2 82.1 mmHg (75.0-100.0); BG PRESSURE SUPPORT 8; BG SAMPLE SITE RIGHT RADIAL; BG TOTAL HEMOGLOBIN 11.4 g/dL (12.0-18.0); BG VENT MODE VENT - CPAP
[2018-12-02] MEDS: ENOXAPARIN 30MG/0.3ML SYR SUBCUT SCH (20:53)
[2018-12-03] VITALS (54 sets, daily range): BP systolic 117–177; BP diastolic 55–84
[2018-12-03] MEDS: METOCLOPRAMIDE HCL 10MG/2ML VIAL IV SCH ×5 (00:39→23:21)
[2018-12-03] MEDS: FLUCONAZOLE 400MG/200ML BAG 200 ML IV SCH (01:17)
[2018-12-03] MEDS: IPRATROPIUM/ALBUTEROL 0.5-3(2.5)MG/3ML NEB INH SCH ×4 (02:17→19:42)
[2018-12-03] MEDS: MEROPENEM 1,000 MG in SODIUM CHLORIDE 0.9% 100 ML IV SCH ×2 (03:10→17:02)
[2018-12-03] MEDS: MORPHINE SULFATE 4 MG/ML CPJ (NOT FOR IM USE) IV PRN ×2 (05:18→13:55)
[2018-12-03 05:52] LABS: HEMATOCRIT. 27.3 % (36.0-48.0); HEMOGLOBIN. 8.9 g/dL (12.0-16.0); MEAN CORPUSCULAR HEMOGLOBIN 29.9 pg (28.0-32.0); MEAN CORPUSCULAR VOLUME 91.8 fL (81.0-99.0); MEAN PLATELET VOLUME 8.5 fl (7.4-10.4); PLATELET 66 x1000/uL (130-400); RED BLOOD CELL COUNT 2.97 mill/uL (4.2-5.4); RED CELL DISTRIBUTION WIDTH 15.6 % (11.6-14.6)
[2018-12-03 06:01] LABS: INR 1.1; PARTIAL THROMBOPLASTIN TIME 31.7 sec (23.4-31.0); PROTHROMBIN TIME 10.8 sec (9.1-11.1)
[2018-12-03 06:13] LABS: PHOSPHORUS 2.6 mg/dL (2.5-4.9)
[2018-12-03] MEDS: ENOXAPARIN 30MG/0.3ML SYR SUBCUT SCH (08:03)
[2018-12-03] MEDS: GUAIFENESIN 600MG ER TABLET PO SCH ×2 (08:06→20:16)
[2018-12-03] MEDS: DOCUSATE SODIUM 250MG CAPSULE PO SCH ×2 (08:06→16:54)
[2018-12-03] MEDS ORDERED: KCL 20MEQ/100ML PREMIX 100 ML IV NR (09:00)
[2018-12-03] MEDS ORDERED: MAGNESIUM 2 G PREMIX 50 ML IV NR (09:00)
[2018-12-03] MEDS ORDERED: HYDRALAZINE 20MG/ML VIAL IV PRN (10:00)
[2018-12-03 10:25] LABS: PLATELET ESTIMATE DECREASED
[2018-12-03] MEDS: DEXT 5%/0.45% NACL 1000ML 1,000 ML IV SCH (10:51)
[2018-12-03] MEDS: FAMOTIDINE 20MG/2ML VIAL IV SCH (17:02)
[2018-12-04] VITALS (9 sets, daily range): BP systolic 142–171; BP diastolic 63–92
[2018-12-04] MEDS: IPRATROPIUM/ALBUTEROL 0.5-3(2.5)MG/3ML NEB INH SCH ×4 (02:00→20:13)
[2018-12-04] MEDS: FLUCONAZOLE 400MG/200ML BAG 200 ML IV SCH (02:25)
[2018-12-04] MEDS: MEROPENEM 1,000 MG in SODIUM CHLORIDE 0.9% 100 ML IV SCH ×2 (04:34→16:27)
[2018-12-04] MEDS: METOCLOPRAMIDE HCL 10MG/2ML VIAL IV SCH ×3 (06:40→18:21)
[2018-12-04 08:55] LABS: HEMATOCRIT. 28.2 % (36.0-48.0); HEMOGLOBIN. 9.2 g/dL (12.0-16.0); MEAN CORPUSCULAR HEMOGLOBIN 30.1 pg (28.0-32.0); MEAN CORPUSCULAR VOLUME 92.4 fL (81.0-99.0); MEAN PLATELET VOLUME 9.2 fl (7.4-10.4); RED BLOOD CELL COUNT 3.05 mill/uL (4.2-5.4); RED CELL DISTRIBUTION WIDTH 15.6 % (11.6-14.6)
[2018-12-04 09:00] LABS: PLATELET 40 x1000/uL (130-400)
[2018-12-04] MEDS: DOCUSATE SODIUM 250MG CAPSULE PO SCH ×2 (09:00→16:21)
[2018-12-04 09:01] LABS: PHOSPHORUS 2.4 mg/dL (2.5-4.9)
[2018-12-04 09:45] LABS: PLATELET ESTIMATE MARKEDLY DECREASED
[2018-12-04] MEDS: GUAIFENESIN 600MG ER TABLET PO SCH ×2 (09:49→20:43)
[2018-12-04] MEDS ORDERED: POTASSIUM PHOS,M-BASIC-D-BASIC 15 MMOL in DEXT 5% WATER 245 ML IV SCH (11:00)
[2018-12-04] MEDS: DEXT 5%/0.45% NACL 1000ML 1,000 ML IV SCH (12:06)
[2018-12-04] MEDS: FAMOTIDINE 20MG/2ML VIAL IV SCH (16:27)
[2018-12-04] MEDS: HYDROMORPHONE HCL/PF 2MG/ML CPJ IV PRN (16:49)
[2018-12-04] MEDS: BLOOD SUGAR DIAGNOSTIC STRIP TEST SCH (18:12)
[2018-12-04] MEDS: ENALAPRIL 1.25MG/ML VIAL 1ML IV SCH (18:20)
[2018-12-04] MEDS ORDERED: TOTAL PARENTERAL NUTRITION 1,700 ML IV SCH (21:00)
[2018-12-05] VITALS (11 sets, daily range): BP systolic 139–160; BP diastolic 49–95
[2018-12-05] MEDS: ENALAPRIL 1.25MG/ML VIAL 1ML IV SCH ×3 (01:18→14:00)
[2018-12-05] MEDS: METOCLOPRAMIDE HCL 10MG/2ML VIAL IV SCH ×3 (01:18→13:59)
[2018-12-05] MEDS: IPRATROPIUM/ALBUTEROL 0.5-3(2.5)MG/3ML NEB INH SCH ×4 (01:58→20:18)
[2018-12-05] MEDS: FLUCONAZOLE 400MG/200ML BAG 200 ML IV SCH (02:09)
[2018-12-05] MEDS: MEROPENEM 1,000 MG in SODIUM CHLORIDE 0.9% 100 ML IV SCH ×2 (04:10→16:51)
[2018-12-05] MEDS: BLOOD SUGAR DIAGNOSTIC STRIP TEST SCH ×5 (05:24→23:03)
[2018-12-05] MEDS: DOCUSATE SODIUM 250MG CAPSULE PO SCH ×2 (08:28→16:08)
[2018-12-05] MEDS: GUAIFENESIN 600MG ER TABLET PO SCH ×2 (08:29→21:00)
[2018-12-05 10:09] LABS: HEMATOCRIT. 26.4 % (36.0-48.0); HEMOGLOBIN. 8.6 g/dL (12.0-16.0); MEAN CORPUSCULAR HEMOGLOBIN 30.1 pg (28.0-32.0); MEAN CORPUSCULAR VOLUME 91.8 fL (81.0-99.0); MEAN PLATELET VOLUME 10.1 fl (7.4-10.4); RED BLOOD CELL COUNT 2.87 mill/uL (4.2-5.4); RED CELL DISTRIBUTION WIDTH 15.8 % (11.6-14.6)
[2018-12-05 10:14] LABS: PLATELET 30 x1000/uL (130-400)
[2018-12-05 10:26] LABS: PHOSPHORUS 1.6 mg/dL (2.5-4.9)
[2018-12-05 10:57] LABS: PLATELET ESTIMATE MARKEDLY DECREASED
[2018-12-05] MEDS: HYDROMORPHONE HCL/PF 2MG/ML CPJ IV PRN (11:31)
[2018-12-05] MEDS ORDERED: FUROSEMIDE 40MG/4ML VIAL IVP NR (12:45)
[2018-12-05] MEDS ORDERED: NITROGLYCERIN OINT 1GM/INCH UDPKT TD SCH (14:00)
[2018-12-05] MEDS ORDERED: POTASSIUM PHOS,M-BASIC-D-BASIC 20 MMOL in DEXT 5% WATER 243.3333 ML IV NR (16:00)
[2018-12-05] MEDS: HYDRALAZINE 20MG/ML VIAL IV SCH ×2 (16:51→23:03)
[2018-12-05] MEDS: FAMOTIDINE 20MG/2ML VIAL IV SCH (16:51)
[2018-12-05] MEDS ORDERED: TOTAL PARENTERAL NUTRITION 1,700 ML IV SCH (21:00)
[2018-12-06] VITALS (12 sets, daily range): BP systolic 119–155; BP diastolic 53–76
[2018-12-06] MEDS: IPRATROPIUM/ALBUTEROL 0.5-3(2.5)MG/3ML NEB INH SCH ×3 (01:44→14:24)
[2018-12-06] MEDS: FLUCONAZOLE 400MG/200ML BAG 200 ML IV SCH (02:05)
[2018-12-06] MEDS: MEROPENEM 1,000 MG in SODIUM CHLORIDE 0.9% 100 ML IV SCH ×2 (03:50→16:58)
[2018-12-06] MEDS: HYDRALAZINE 20MG/ML VIAL IV SCH ×3 (03:50→16:58)
[2018-12-06] MEDS: BLOOD SUGAR DIAGNOSTIC STRIP TEST SCH ×3 (06:00→18:13)
[2018-12-06 07:04] LABS: HEMATOCRIT. 27.4 % (36.0-48.0); MEAN CORPUSCULAR HEMOGLOBIN 30.5 pg (28.0-32.0); MEAN CORPUSCULAR VOLUME 92.6 fL (81.0-99.0); MEAN PLATELET VOLUME 10.8 fl (7.4-10.4); RED BLOOD CELL COUNT 2.96 mill/uL (4.2-5.4); RED CELL DISTRIBUTION WIDTH 15.7 % (11.6-14.6)
[2018-12-06 07:12] LABS: PLATELET 30 x1000/uL (130-400)
[2018-12-06] MEDS: ENALAPRIL 1.25MG/ML VIAL 1ML IV SCH ×4 (07:40→18:26)
[2018-12-06] MEDS: METOCLOPRAMIDE HCL 10MG/2ML VIAL IV SCH ×4 (07:41→18:26)
[2018-12-06 08:03] LABS: PHOSPHORUS 2.2 mg/dL (2.5-4.9)
[2018-12-06] MEDS: DOCUSATE SODIUM 250MG CAPSULE PO SCH ×2 (09:00→16:59)
[2018-12-06] MEDS: GUAIFENESIN 600MG ER TABLET PO SCH (09:00)
[2018-12-06] MEDS ORDERED: FAT EMULSIONS 500 ML IV NR (10:00)
[2018-12-06 10:44] LABS: PLATELET ESTIMATE MARKEDLY DECREASED
[2018-12-06] MEDS: FAMOTIDINE 20MG/2ML VIAL IV SCH (16:58)
[2018-12-06] MEDS: HYDROMORPHONE HCL/PF 2MG/ML CPJ IV PRN (19:55)
[2018-12-06] MEDS ORDERED: TOTAL PARENTERAL NUTRITION 1,700 ML IV SCH (21:00)
[2018-12-08] MEDS ORDERED: BLOOD SUGAR DIAGNOSTIC STRIP TEST SCH (09:00)
[2018-12-09] MEDS ORDERED: FAT EMULSIONS 500 ML IV SCH (21:00)
== END 2018-12-06 21:30 | DRG 853 ==
LOC: ER 18:00 → 3WST 19:04 → EDBEDREQTM 19:07 → EDBEDREQSVC 19:07 → EDBEDREQ 19:07 → ENRESERV 20:35 → MICUSO 11-29 20:59 → 5EST 12-03 23:46
PROVIDERS: ADMIT Family Medicine Adult Medicine; ATTEND Family Medicine Adult Medicine
PROC: B5181ZA Fluoroscopy of Superior Vena Cava using Low Osmolar Contrast, Guidance (ICD-10-PCS; 2018-11-28)
PROC: 02HV33Z Insertion of Infusion Device into Superior Vena Cava, Percutaneous Approach (ICD-10-PCS; 2018-11-28)
PROC: B548ZZA Ultrasonography of Superior Vena Cava, Guidance (ICD-10-PCS; 2018-11-28)
PROC: 0DTN0ZZ Resection of Sigmoid Colon, Open Approach (ICD-10-PCS; principal; 2018-11-29)
PROC: 0DTP0ZZ Resection of Rectum, Open Approach (ICD-10-PCS; 2018-11-29)
PROC: 0D1M0Z4 Bypass Descending Colon to Cutaneous, Open Approach (ICD-10-PCS; 2018-11-29)
PROC: 5A1945Z Respiratory Ventilation, 24-96 Consecutive Hours (ICD-10-PCS; 2018-11-29)
PROC: 0BH17EZ Insertion of Endotracheal Airway into Trachea, Via Natural or Artificial Opening (ICD-10-PCS; 2018-11-29)
PROC: 06HM33Z Insertion of Infusion Device into Right Femoral Vein, Percutaneous Approach (ICD-10-PCS; 2018-11-29)
PROC: 30233R1 Transfusion of Nonautologous Platelets into Peripheral Vein, Percutaneous Approach (ICD-10-PCS; 2018-12-01)
PROC: 30233N1 Transfusion of Nonautologous Red Blood Cells into Peripheral Vein, Percutaneous Approach (ICD-10-PCS; 2018-12-01)
DX: A41.9 Sepsis, unspecified organism (principal); J96.00 Acute respiratory failure, unspecified whether with hypoxia or hypercapnia; K85.90 Acute pancreatitis without necrosis or infection, unspecified; E43 Unspecified severe protein-calorie malnutrition; N17.0 Acute kidney failure with tubular necrosis; D65 Disseminated intravascular coagulation [defibrination syndrome]; J18.1 Lobar pneumonia, unspecified organism; N39.0 Urinary tract infection, site not specified; K57.20 Diverticulitis of large intestine with perforation and abscess without bleeding; M62.82 Rhabdomyolysis; D62 Acute posthemorrhagic anemia; E87.2 Acidosis; R18.8 Other ascites; K56.7 Ileus, unspecified; J20.9 Acute bronchitis, unspecified; I48.0 Paroxysmal atrial fibrillation; E78.5 Hyperlipidemia, unspecified; N18.9 Chronic kidney disease, unspecified; I49.5 Sick sinus syndrome; E83.41 Hypermagnesemia; E86.9 Volume depletion, unspecified; K75.89 Other specified inflammatory liver diseases; D25.9 Leiomyoma of uterus, unspecified; E11.22 Type 2 diabetes mellitus with diabetic chronic kidney disease; E11.65 Type 2 diabetes mellitus with hyperglycemia; E66.01 Morbid (severe) obesity due to excess calories; E83.39 Other disorders of phosphorus metabolism; E83.42 Hypomagnesemia; E86.0 Dehydration; I25.10 Atherosclerotic heart disease of native coronary artery without angina pectoris; J45.909 Unspecified asthma, uncomplicated; J84.10 Pulmonary fibrosis, unspecified; R26.9 Unspecified abnormalities of gait and mobility; K56.41 Fecal impaction; K66.8 Other specified disorders of peritoneum; I12.9 Hypertensive chronic kidney disease with stage 1 through stage 4 chronic kidney disease, or unspecified chronic kidney disease; N28.1 Cyst of kidney, acquired; R13.10 Dysphagia, unspecified; T38.0X5A Adverse effect of glucocorticoids and synthetic analogues, initial encounter; Y92.89 Other specified places as the place of occurrence of the external cause; Z82.49 Family history of ischemic heart disease and other diseases of the circulatory system; Z88.0 Allergy status to penicillin; Z95.0 Presence of cardiac pacemaker; Z68.39 Body mass index [BMI] 39.0-39.9, adult
CPT/HCPCS: 36415; 36569; 36573; 36600; 71045; 74018; 74176; 74178; 76700; 80048; 80061; 80076; 80202; 82140; 82150; 82248; 82375; 82550; 82805; 82962; 83036; 83605; 83735; 83880; 84100; 84145; 84439; 84443; 84478; 84481; 84484; 85027; 85362; 85384; 86038; 86160; 86850; 86900; 86920; 87070; 87075; 87077; 87106; 87186; 87804; 88309; 88329; 93005; 93306; 93970; 94003; 94640; 96365; 97110; 97116; 97162; 97164; 97166; 97168; 97530; 99291; C1725; J0330; J0360; J0610; J0692; J0696; J1170; J1450; J1650; J1940; J1956; J2185; J2250; J2270; J2370; J2405; J2704; J2710; J2765; J2920; J2930; J3010; J3370; J3475; J3480; J3490; J7030; J7040; J7050; J7060; J7512; J7611; J7620; P9016; P9034; P9041; Q9967

== ENCOUNTER 2018-12-20 19:10 | Inpatient (IN) | payer MEDICARE ==
[~2018-12-20] VITALS: Ht 170.2 cm; Wt 96.6 kg
[2018-12-20 19:10] VITALS: BP 138/63
[2018-12-20 20:00] VITALS: BP_SYST 138; BP_SYST 143; BP_DIAS 63
[2018-12-20] MEDS ORDERED: BISACODYL 5MG TABLET PO PRN (22:30)
[2018-12-20] MEDS ORDERED: GUAIFENESIN 200MG/10ML SUGAR FREE UDC PO PRN (22:30)
[2018-12-20] MEDS ORDERED: ACETAMINOPHEN 650MG SUPP PR PRN (22:30)
[2018-12-20] MEDS ORDERED: DIPHENHYDRAMINE 50MG CAPSULE PO PRN (22:30)
[2018-12-20] MEDS ORDERED: SIMETHICONE 40 MG/0.6 ML 30ML PO PRN (22:30)
[2018-12-20] MEDS ORDERED: IPRATROPIUM/ALBUTEROL 0.5-3(2.5)MG/3ML NEB HHN PRN (22:30)
[2018-12-21] MEDS ORDERED: ONDANSETRON HCL 4MG TABLET PO PRN (00:30)
[2018-12-21] MEDS ORDERED: METOCLOPRAMIDE 10MG/10 ML UDC PO PRN (01:00)
[2018-12-21] MEDS: IPRATROPIUM/ALBUTEROL 0.5-3(2.5)MG/3ML NEB HHN SCH ×4 (01:15→20:00)
[2018-12-21 07:16] LABS: BASOPHILS % 1.4 % (0.0-2.0); EOSINOPHILS % 4.7 % (0.0-5.0); HEMATOCRIT. 24.2 % (36.0-48.0); HEMOGLOBIN. 7.9 g/dL (12.0-16.0); LYMPHOCYTES % 21.3 % (20.0-50.0); MEAN CORPUSCULAR HEMOGLOBIN 29.8 pg (28.0-32.0); MEAN CORPUSCULAR VOLUME 91.7 fL (81.0-99.0); MEAN PLATELET VOLUME 9.8 fl (7.4-10.4); MONOCYTES % 11.4 % (2.0-8.0); NEUTROPHILS % 61.2 % (40.0-76.0); PLATELET 277 x1000/uL (130-400); RED BLOOD CELL COUNT 2.63 mill/uL (4.2-5.4); RED CELL DISTRIBUTION WIDTH 15.5 % (11.6-14.6)
[2018-12-21 07:45] LABS: CHLORIDE 110 mEq/L (98-107)
[2018-12-21 08:00] VITALS: BP 137/64
[2018-12-21] MEDS ORDERED: SIMETHICONE 80MG TABLET CHEW PO PRN (08:00)
[2018-12-21] MEDS: DOCUSATE SODIUM 250MG CAPSULE PO SCH ×2 (11:00→17:00)
[2018-12-21] MEDS: GUAIFENESIN 600MG ER TABLET PO SCH ×2 (11:00→21:29)
[2018-12-21] MEDS: ERGOCALCIFEROL 50000UNITS CAPSULE PO SCH (11:00)
[2018-12-21] MEDS: FLUCONAZOLE 100MG TABLET PO SCH (11:00)
[2018-12-21] MEDS: FAMOTIDINE 20MG TABLET PO SCH (11:01)
[2018-12-21] MEDS: HYDRALAZINE HCL 50MG TABLET PO SCH ×2 (11:01→21:29)
[2018-12-21 20:00] VITALS: BP 135/72
[2018-12-22] MEDS: IPRATROPIUM/ALBUTEROL 0.5-3(2.5)MG/3ML NEB HHN SCH ×4 (00:35→20:36)
[2018-12-22 08:00] VITALS: BP 135/75
[2018-12-22] MEDS: FAMOTIDINE 20MG TABLET PO SCH (08:47)
[2018-12-22] MEDS: DOCUSATE SODIUM 250MG CAPSULE PO SCH ×2 (08:48→16:18)
[2018-12-22] MEDS: GUAIFENESIN 600MG ER TABLET PO SCH ×2 (08:48→21:42)
[2018-12-22] MEDS: FLUCONAZOLE 100MG TABLET PO SCH (08:48)
[2018-12-22] MEDS: HYDRALAZINE HCL 50MG TABLET PO SCH ×2 (08:48→21:42)
[2018-12-22 10:14] LABS: HEMATOCRIT. 25.4 % (36.0-48.0); HEMOGLOBIN. 8.3 g/dL (12.0-16.0); MEAN CORPUSCULAR HEMOGLOBIN 29.8 pg (28.0-32.0); MEAN CORPUSCULAR VOLUME 90.7 fL (81.0-99.0); MEAN PLATELET VOLUME 9.6 fl (7.4-10.4); PLATELET 273 x1000/uL (130-400); RED CELL DISTRIBUTION WIDTH 15.7 % (11.6-14.6)
[2018-12-22 13:35] LABS: CLARITY URINE CLEAR (CLEAR); COLOR URINE YELLOW (YELLOW); KETONES URINE TRACE (NEGATIVE); LEUKOCYTE ESTERASE URINE NEGATIVE (NEGATIVE); NITRITE URINE NEGATIVE (NEGATIVE); OCCULT BLOOD URINE NEGATIVE (NEGATIVE); PH URINE 6.5 (4.5-8.0); PROTEIN URINE 1+ (NEGATIVE); SPECIFIC GRAVITY URINE 1.015 (1.005-1.030); UROBILINOGEN URINE 0.2 E.U./dL (0.2-1.0)
[2018-12-22 20:00] VITALS: BP 150/80
[2018-12-23] MEDS: IPRATROPIUM/ALBUTEROL 0.5-3(2.5)MG/3ML NEB HHN SCH ×2 (01:41→07:56)
[2018-12-23 02:13] LABS: ATYPICAL LYMPHOCYTES 1
[2018-12-23 02:14] LABS: PLATELET ESTIMATE NORMAL
[2018-12-23 05:52] LABS: HEMATOCRIT. 23.1 % (36.0-48.0); HEMOGLOBIN. 7.8 g/dL (12.0-16.0); MEAN CORPUSCULAR HEMOGLOBIN 30.5 pg (28.0-32.0); MEAN CORPUSCULAR VOLUME 90.6 fL (81.0-99.0); MEAN PLATELET VOLUME 9.2 fl (7.4-10.4); PLATELET 247 x1000/uL (130-400); RED BLOOD CELL COUNT 2.55 mill/uL (4.2-5.4); RED CELL DISTRIBUTION WIDTH 16.1 % (11.6-14.6)
[2018-12-23 06:16] LABS: FOLIC ACID (FOLATE) SERUM 8.3 ng/mL (>5.38)
[2018-12-23 07:03] LABS: PHOSPHORUS 3.6 mg/dL (2.5-4.9)
[2018-12-23 08:00] VITALS: BP 165/76
[2018-12-23] MEDS: DOCUSATE SODIUM 250MG CAPSULE PO SCH ×2 (09:00→16:22)
[2018-12-23] MEDS: GUAIFENESIN 600MG ER TABLET PO SCH ×2 (10:09→21:19)
[2018-12-23] MEDS: FLUCONAZOLE 100MG TABLET PO SCH (10:10)
[2018-12-23] MEDS: HYDRALAZINE HCL 50MG TABLET PO SCH ×2 (10:11→21:20)
[2018-12-23] MEDS: FAMOTIDINE 20MG TABLET PO SCH (10:12)
[2018-12-23 11:20] LABS: T4 FREE 1.01 ng/dL (0.76-1.46)
[2018-12-23] MEDS: LEVOTHYROXINE SODIUM 25MCG TABLET PO SCH (13:08)
[2018-12-23] MEDS: FERROUS SULFATE 325MG TABLET PO SCH ×2 (13:08→16:22)
[2018-12-23] MEDS: FUROSEMIDE 20MG TABLET PO SCH (13:08)
[2018-12-23 13:35] LABS: PLATELET ESTIMATE NORMAL
[2018-12-23] MEDS: MAGNESIUM OXIDE 400MG TABLET PO SCH ×2 (16:22→21:19)
[2018-12-23 20:00] VITALS: BP_SYST 146; BP_SYST 168; BP_DIAS 72; BP_DIAS 78
[2018-12-23] MEDS: EPOETIN ALFA 10000UNITS/ML VIAL SUBCUT SCH (21:20)
[2018-12-24 05:25] LABS: HEMATOCRIT. 23.4 % (36.0-48.0); HEMOGLOBIN. 7.8 g/dL (12.0-16.0); MEAN CORPUSCULAR HEMOGLOBIN 30.2 pg (28.0-32.0); MEAN CORPUSCULAR VOLUME 89.9 fL (81.0-99.0); MEAN PLATELET VOLUME 9.5 fl (7.4-10.4); PLATELET 239 x1000/uL (130-400); RED CELL DISTRIBUTION WIDTH 16.1 % (11.6-14.6)
[2018-12-24] MEDS: LEVOTHYROXINE SODIUM 25MCG TABLET PO SCH (06:21)
[2018-12-24 08:00] VITALS: BP 147/76
[2018-12-24] MEDS: MAGNESIUM OXIDE 400MG TABLET PO SCH ×2 (08:50→21:05)
[2018-12-24] MEDS: FUROSEMIDE 20MG TABLET PO SCH (08:51)
[2018-12-24] MEDS: FERROUS SULFATE 325MG TABLET PO SCH ×2 (08:51→13:00)
[2018-12-24] MEDS: HYDRALAZINE HCL 50MG TABLET PO SCH ×2 (08:51→21:05)
[2018-12-24] MEDS: GUAIFENESIN 600MG ER TABLET PO SCH ×2 (08:51→21:05)
[2018-12-24] MEDS: FAMOTIDINE 20MG TABLET PO SCH (08:51)
[2018-12-24] MEDS: FLUCONAZOLE 100MG TABLET PO SCH (08:52)
[2018-12-24] MEDS: DOCUSATE SODIUM 250MG CAPSULE PO SCH (08:52)
[2018-12-24 10:28] LABS: PLATELET ESTIMATE NORMAL
[2018-12-24 20:00] VITALS: BP 146/76
[2018-12-25] MEDS: AMLODIPINE 5MG TABLET PO SCH ×2 (01:54→09:07)
[2018-12-25] MEDS: LEVOTHYROXINE SODIUM 137MCG TABLET PO SCH (06:09)
[2018-12-25 06:26] LABS: HEMATOCRIT. 24.2 % (36.0-48.0); HEMOGLOBIN. 8.1 g/dL (12.0-16.0); MEAN CORPUSCULAR HEMOGLOBIN 30.3 pg (28.0-32.0); MEAN CORPUSCULAR VOLUME 90.6 fL (81.0-99.0); MEAN PLATELET VOLUME 9.6 fl (7.4-10.4); PLATELET 246 x1000/uL (130-400); RED BLOOD CELL COUNT 2.67 mill/uL (4.2-5.4); RED CELL DISTRIBUTION WIDTH 16.3 % (11.6-14.6)
[2018-12-25 08:00] VITALS: BP 133/61
[2018-12-25] MEDS: DOCUSATE SODIUM 250MG CAPSULE PO SCH ×2 (09:00→16:04)
[2018-12-25] MEDS: GUAIFENESIN 600MG ER TABLET PO SCH ×2 (09:05→22:17)
[2018-12-25] MEDS: FLUCONAZOLE 100MG TABLET PO SCH (09:06)
[2018-12-25] MEDS: FUROSEMIDE 20MG TABLET PO SCH (09:06)
[2018-12-25] MEDS: FERROUS SULFATE 325MG TABLET PO SCH ×3 (09:06→16:04)
[2018-12-25] MEDS: FAMOTIDINE 20MG TABLET PO SCH (09:06)
[2018-12-25] MEDS: MAGNESIUM OXIDE 400MG TABLET PO SCH ×3 (09:06→22:16)
[2018-12-25] MEDS: HYDRALAZINE HCL 50MG TABLET PO SCH ×2 (09:07→22:16)
[2018-12-25 11:17] LABS: PLATELET ESTIMATE NORMAL
[2018-12-25] MEDS ORDERED: POTASSIUM CHLORIDE 20MEQ TABLET SR PO SCH (13:15)
[2018-12-25 20:00] VITALS: BP 132/70
[2018-12-25] MEDS: EPOETIN ALFA 10000UNITS/ML VIAL SUBCUT SCH (22:17)
[2018-12-26 04:12] LABS: 25-HYDROXY VITAMIN D3 8.8 ng/mL (.)
[2018-12-26] MEDS: MAGNESIUM OXIDE 400MG TABLET PO SCH ×3 (05:39→21:44)
[2018-12-26] MEDS: LEVOTHYROXINE SODIUM 137MCG TABLET PO SCH (07:04)
[2018-12-26 08:23] VITALS: BP 130/68
[2018-12-26] MEDS: FAMOTIDINE 20MG TABLET PO SCH (08:25)
[2018-12-26] MEDS: FUROSEMIDE 40MG TABLET PO SCH (08:25)
[2018-12-26] MEDS: FERROUS SULFATE 325MG TABLET PO SCH ×3 (08:25→16:47)
[2018-12-26] MEDS: HYDRALAZINE HCL 50MG TABLET PO SCH ×2 (08:25→21:45)
[2018-12-26] MEDS: FLUCONAZOLE 100MG TABLET PO SCH ×2 (08:26→10:09)
[2018-12-26] MEDS: DOCUSATE SODIUM 250MG CAPSULE PO SCH ×2 (08:26→17:00)
[2018-12-26] MEDS: GUAIFENESIN 600MG ER TABLET PO SCH ×2 (08:26→21:44)
[2018-12-26] MEDS ORDERED: ERGOCALCIFEROL 50000UNITS CAPSULE PO SCH (09:00)
[2018-12-26 20:00] VITALS: BP 138/59
[2018-12-27] MEDS: LEVOTHYROXINE SODIUM 137MCG TABLET PO SCH (06:11)
[2018-12-27] MEDS: MAGNESIUM OXIDE 400MG TABLET PO SCH ×2 (06:11→15:06)
[2018-12-27 08:16] VITALS: BP 131/61
[2018-12-27] MEDS: DOCUSATE SODIUM 250MG CAPSULE PO SCH ×2 (09:00→16:14)
[2018-12-27] MEDS: HYDRALAZINE HCL 50MG TABLET PO SCH (09:08)
[2018-12-27] MEDS: GUAIFENESIN 600MG ER TABLET PO SCH ×2 (09:09→21:00)
[2018-12-27] MEDS: FERROUS SULFATE 325MG TABLET PO SCH ×3 (09:09→16:14)
[2018-12-27] MEDS: FUROSEMIDE 40MG TABLET PO SCH (09:09)
[2018-12-27] MEDS: FAMOTIDINE 20MG TABLET PO SCH (09:09)
[2018-12-27] MEDS: FLUCONAZOLE 100MG TABLET PO SCH (09:09)
[2018-12-27 15:44] LABS: HEMATOCRIT 29.4 % (36.0-48.0); HEMOGLOBIN 9.6 g/dL (12.0-16.0); MEAN CORPUSCULAR HEMOGLOBIN 29.8 pg (28.0-32.0); MEAN CORPUSCULAR VOLUME 91.5 fL (81.0-99.0); PLATELET 307 x1000/uL (130-400); RED BLOOD CELL COUNT 3.22 mill/uL (4.2-5.4); RED CELL DISTRIBUTION WIDTH 16.8 % (11.6-14.6)
[2018-12-27 16:01] LABS: CHLORIDE 102 mEq/L (98-107)
[2018-12-27 16:14] LABS: PHOSPHORUS 2.9 mg/dL (2.5-4.9)
[2018-12-28] MEDS: HYDRALAZINE HCL 50MG TABLET PO SCH ×3 (00:08→21:16)
[2018-12-28] MEDS: MAGNESIUM OXIDE 400MG TABLET PO SCH ×2 (00:10→01:03)
[2018-12-28] MEDS: EPOETIN ALFA 10000UNITS/ML VIAL SUBCUT SCH (00:14)
[2018-12-28 07:24] LABS: HEMATOCRIT. 26.7 % (36.0-48.0); HEMOGLOBIN. 8.8 g/dL (12.0-16.0); MEAN CORPUSCULAR HEMOGLOBIN 29.9 pg (28.0-32.0); MEAN CORPUSCULAR VOLUME 90.9 fL (81.0-99.0); MEAN PLATELET VOLUME 9.5 fl (7.4-10.4); PLATELET 283 x1000/uL (130-400); RED BLOOD CELL COUNT 2.94 mill/uL (4.2-5.4); RED CELL DISTRIBUTION WIDTH 16.9 % (11.6-14.6)
[2018-12-28 08:52] VITALS: BP 144/73
[2018-12-28] MEDS: FLUCONAZOLE 100MG TABLET PO SCH (09:00)
[2018-12-28] MEDS: GUAIFENESIN 600MG ER TABLET PO SCH ×2 (09:00→21:16)
[2018-12-28] MEDS: LEVOTHYROXINE SODIUM 137MCG TABLET PO SCH (10:12)
[2018-12-28] MEDS: FERROUS SULFATE 325MG TABLET PO SCH ×3 (10:15→17:30)
[2018-12-28] MEDS: DOCUSATE SODIUM 250MG CAPSULE PO SCH ×2 (10:15→17:00)
[2018-12-28] MEDS: FUROSEMIDE 40MG TABLET PO SCH (10:15)
[2018-12-28] MEDS: FAMOTIDINE 20MG TABLET PO SCH (10:16)
[2018-12-28] MEDS: ERGOCALCIFEROL 50000UNITS CAPSULE PO SCH (10:25)
[2018-12-28] MEDS: POTASSIUM CHLORIDE 20MEQ TABLET SR PO SCH (10:26)
[2018-12-28 10:31] LABS: PLATELET ESTIMATE NORMAL
[2018-12-28 20:00] VITALS: BP 156/76
[2018-12-29] MEDS: LEVOTHYROXINE SODIUM 137MCG TABLET PO SCH (06:33)
[2018-12-29 06:36] LABS: HEMATOCRIT. 25.7 % (36.0-48.0); HEMOGLOBIN. 8.4 g/dL (12.0-16.0); MEAN CORPUSCULAR HEMOGLOBIN 29.9 pg (28.0-32.0); MEAN CORPUSCULAR VOLUME 91.3 fL (81.0-99.0); MEAN PLATELET VOLUME 9.4 fl (7.4-10.4); PLATELET 280 x1000/uL (130-400); RED BLOOD CELL COUNT 2.81 mill/uL (4.2-5.4); RED CELL DISTRIBUTION WIDTH 17.3 % (11.6-14.6)
[2018-12-29 08:00] VITALS: BP 100/56
[2018-12-29] MEDS: HYDRALAZINE HCL 50MG TABLET PO SCH ×2 (09:00→21:54)
[2018-12-29] MEDS: DOCUSATE SODIUM 250MG CAPSULE PO SCH ×2 (09:00→17:43)
[2018-12-29 09:07] LABS: PLATELET ESTIMATE NORMAL
[2018-12-29] MEDS: POTASSIUM CHLORIDE 20MEQ TABLET SR PO SCH (09:29)
[2018-12-29] MEDS: FERROUS SULFATE 325MG TABLET PO SCH ×3 (09:29→17:43)
[2018-12-29] MEDS: FUROSEMIDE 40MG TABLET PO SCH (09:29)
[2018-12-29] MEDS: FAMOTIDINE 20MG TABLET PO SCH (09:29)
[2018-12-29] MEDS: GUAIFENESIN 600MG ER TABLET PO SCH ×2 (09:29→21:53)
[2018-12-29] MEDS ORDERED: POTASSIUM CHLORIDE 20MEQ TABLET SR PO NR (11:30)
[2018-12-29 20:00] VITALS: BP 140/72
[2018-12-30] MEDS: LEVOTHYROXINE SODIUM 137MCG TABLET PO SCH (06:10)
[2018-12-30 07:09] LABS: HEMATOCRIT. 26.5 % (36.0-48.0); HEMOGLOBIN. 8.6 g/dL (12.0-16.0); MEAN CORPUSCULAR VOLUME 92.4 fL (81.0-99.0); MEAN PLATELET VOLUME 9.4 fl (7.4-10.4); PLATELET 255 x1000/uL (130-400); RED BLOOD CELL COUNT 2.87 mill/uL (4.2-5.4); RED CELL DISTRIBUTION WIDTH 17.1 % (11.6-14.6)
[2018-12-30 08:05] VITALS: BP 132/70
[2018-12-30] MEDS: FAMOTIDINE 20MG TABLET PO SCH (08:19)
[2018-12-30] MEDS: DOCUSATE SODIUM 250MG CAPSULE PO SCH ×2 (08:19→17:00)
[2018-12-30] MEDS: POTASSIUM CHLORIDE 20MEQ TABLET SR PO SCH (08:20)
[2018-12-30] MEDS: HYDRALAZINE HCL 50MG TABLET PO SCH ×2 (08:20→21:05)
[2018-12-30] MEDS: GUAIFENESIN 600MG ER TABLET PO SCH ×2 (08:20→21:05)
[2018-12-30] MEDS: FUROSEMIDE 40MG TABLET PO SCH (08:20)
[2018-12-30] MEDS: FERROUS SULFATE 325MG TABLET PO SCH ×3 (08:20→17:22)
[2018-12-30 09:32] LABS: PLATELET ESTIMATE NORMAL
[2018-12-30 20:00] VITALS: BP 145/78
[2018-12-31] MEDS: LEVOTHYROXINE SODIUM 137MCG TABLET PO SCH (06:29)
[2018-12-31 08:00] VITALS: BP 141/72
[2018-12-31] MEDS: GUAIFENESIN 600MG ER TABLET PO SCH ×2 (09:00→21:23)
[2018-12-31] MEDS ORDERED: FUROSEMIDE 20MG TABLET PO SCH (09:00)
[2018-12-31] MEDS: FERROUS SULFATE 325MG TABLET PO SCH ×3 (09:00→16:17)
[2018-12-31] MEDS: POTASSIUM CHLORIDE 20MEQ TABLET SR PO SCH (09:00)
[2018-12-31] MEDS: FAMOTIDINE 20MG TABLET PO SCH (09:00)
[2018-12-31] MEDS: DOCUSATE SODIUM 250MG CAPSULE PO SCH ×2 (09:00→16:17)
[2018-12-31] MEDS: HYDRALAZINE HCL 50MG TABLET PO SCH ×2 (09:00→21:24)
[2018-12-31 20:00] VITALS: BP 140/71
[2019-01-01] MEDS: LEVOTHYROXINE SODIUM 137MCG TABLET PO SCH (06:07)
[2019-01-01 06:52] LABS: HEMATOCRIT. 25.2 % (36.0-48.0); HEMOGLOBIN. 8.4 g/dL (12.0-16.0); MEAN CORPUSCULAR HEMOGLOBIN 30.5 pg (28.0-32.0); MEAN CORPUSCULAR VOLUME 92.2 fL (81.0-99.0); MEAN PLATELET VOLUME 9.3 fl (7.4-10.4); PLATELET 226 x1000/uL (130-400); RED BLOOD CELL COUNT 2.73 mill/uL (4.2-5.4); RED CELL DISTRIBUTION WIDTH 17.6 % (11.6-14.6)
[2019-01-01 08:00] VITALS: BP 129/69
[2019-01-01] MEDS: DOCUSATE SODIUM 250MG CAPSULE PO SCH ×2 (09:00→17:00)
[2019-01-01 09:11] LABS: PLATELET ESTIMATE NORMAL
[2019-01-01] MEDS: FERROUS SULFATE 325MG TABLET PO SCH ×3 (10:54→17:07)
[2019-01-01] MEDS: FAMOTIDINE 20MG TABLET PO SCH (10:54)
[2019-01-01] MEDS: POTASSIUM CHLORIDE 20MEQ TABLET SR PO SCH (10:54)
[2019-01-01] MEDS: HYDRALAZINE HCL 50MG TABLET PO SCH ×2 (10:55→21:39)
[2019-01-01] MEDS: GUAIFENESIN 600MG ER TABLET PO SCH ×2 (10:55→21:39)
[2019-01-01 14:04] LABS: T4 FREE 1.42 ng/dL (0.76-1.46)
[2019-01-01 20:00] VITALS: BP 132/76
[2019-01-02] MEDS: LEVOTHYROXINE SODIUM 137MCG TABLET PO SCH (06:11)
[2019-01-02 06:40] LABS: HEMATOCRIT. 25.6 % (36.0-48.0); HEMOGLOBIN. 8.5 g/dL (12.0-16.0); MEAN CORPUSCULAR HEMOGLOBIN 30.4 pg (28.0-32.0); MEAN CORPUSCULAR VOLUME 91.9 fL (81.0-99.0); MEAN PLATELET VOLUME 9.1 fl (7.4-10.4); PLATELET 239 x1000/uL (130-400); RED BLOOD CELL COUNT 2.79 mill/uL (4.2-5.4); RED CELL DISTRIBUTION WIDTH 17.4 % (11.6-14.6)
[2019-01-02 08:00] VITALS: BP 149/82
[2019-01-02 08:40] LABS: PLATELET ESTIMATE NORMAL
[2019-01-02] MEDS: DOCUSATE SODIUM 250MG CAPSULE PO SCH ×2 (09:00→16:01)
[2019-01-02] MEDS: HYDRALAZINE HCL 50MG TABLET PO SCH ×2 (09:30→22:02)
[2019-01-02] MEDS: FAMOTIDINE 20MG TABLET PO SCH (09:30)
[2019-01-02] MEDS: GUAIFENESIN 600MG ER TABLET PO SCH ×2 (09:30→22:02)
[2019-01-02] MEDS: FERROUS SULFATE 325MG TABLET PO SCH ×3 (09:30→16:04)
[2019-01-02] MEDS: POTASSIUM CHLORIDE 20MEQ TABLET SR PO SCH (09:30)
[2019-01-02 11:46] VITALS: BP 130/80
[2019-01-02 20:00] VITALS: BP 135/66
[2019-01-02 20:27] LABS: BASOPHILS % 1.9 % (0.0-2.0); EOSINOPHILS % 3.1 % (0.0-5.0); HEMATOCRIT. 30.1 % (36.0-48.0); HEMOGLOBIN. 9.9 g/dL (12.0-16.0); LYMPHOCYTES % 14.9 % (20.0-50.0); MEAN CORPUSCULAR HEMOGLOBIN 30.4 pg (28.0-32.0); MEAN CORPUSCULAR VOLUME 92.8 fL (81.0-99.0); MEAN PLATELET VOLUME 8.9 fl (7.4-10.4); MONOCYTES % 11.6 % (2.0-8.0); NEUTROPHILS % 68.5 % (40.0-76.0); PLATELET 262 x1000/uL (130-400); RED BLOOD CELL COUNT 3.25 mill/uL (4.2-5.4); RED CELL DISTRIBUTION WIDTH 18.3 % (11.6-14.6)
[2019-01-03] MEDS: LEVOTHYROXINE SODIUM 137MCG TABLET PO SCH (06:30)
[2019-01-03 08:00] VITALS: BP 132/70
[2019-01-03] MEDS: GUAIFENESIN 600MG ER TABLET PO SCH ×2 (09:00→21:41)
[2019-01-03] MEDS: FAMOTIDINE 20MG TABLET PO SCH (09:00)
[2019-01-03] MEDS: DOCUSATE SODIUM 250MG CAPSULE PO SCH ×2 (09:00→16:41)
[2019-01-03] MEDS: FERROUS SULFATE 325MG TABLET PO SCH ×3 (09:00→16:42)
[2019-01-03] MEDS: POTASSIUM CHLORIDE 20MEQ TABLET SR PO SCH (09:00)
[2019-01-03] MEDS ORDERED: FENTANYL CITRATE/PF 50MCG/ML 2ML VIAL ONE (09:25)
[2019-01-03] MEDS ORDERED: MIDAZOLAM HCL 2 MG/2 ML VIAL ONE (09:25)
[2019-01-03] MEDS ORDERED: DIPHENHYDRAMINE 50MG/ML VIAL ONE (09:25)
[2019-01-03] MEDS ORDERED: PROPOFOL 200MG/20ML VIAL IV ONE (09:37)
[2019-01-03] MEDS ORDERED: METRONIDAZOLE 500 MG PREMIX 100 ML IV ONE (09:42)
[2019-01-03] MEDS ORDERED: KETOROLAC 30MG/ML VIAL IV NR (10:00)
[2019-01-03] MEDS ORDERED: HYDROMORPHONE HCL/PF 2MG/ML CPJ IV PRN (10:30)
[2019-01-03] MEDS: HYDRALAZINE HCL 50MG TABLET PO SCH ×2 (11:56→21:41)
[2019-01-03 20:40] LABS: CHLORIDE 108 mEq/L (98-107)
[2019-01-03 21:38] VITALS: BP 129/76
[2019-01-03 22:47] LABS: HEMATOCRIT. 29.7 % (36.0-48.0); HEMOGLOBIN. 9.6 g/dL (12.0-16.0); MEAN CORPUSCULAR HEMOGLOBIN 30.5 pg (28.0-32.0); MEAN CORPUSCULAR VOLUME 94.7 fL (81.0-99.0); MEAN PLATELET VOLUME 9.1 fl (7.4-10.4); PLATELET 227 x1000/uL (130-400); RED BLOOD CELL COUNT 3.13 mill/uL (4.2-5.4); RED CELL DISTRIBUTION WIDTH 19.2 % (11.6-14.6)
[2019-01-03 23:05] LABS: PLATELET ESTIMATE NORMAL
[2019-01-04 06:58] LABS: HEMATOCRIT. 25.8 % (36.0-48.0); HEMOGLOBIN. 8.5 g/dL (12.0-16.0); MEAN CORPUSCULAR HEMOGLOBIN 30.7 pg (28.0-32.0); MEAN CORPUSCULAR VOLUME 93.5 fL (81.0-99.0); MEAN PLATELET VOLUME 9.2 fl (7.4-10.4); PLATELET 219 x1000/uL (130-400); RED BLOOD CELL COUNT 2.76 mill/uL (4.2-5.4); RED CELL DISTRIBUTION WIDTH 18.7 % (11.6-14.6)
[2019-01-04] MEDS: LEVOTHYROXINE SODIUM 137MCG TABLET PO SCH (07:00)
[2019-01-04 08:07] VITALS: BP 157/78
[2019-01-04] MEDS: POTASSIUM CHLORIDE 20MEQ TABLET SR PO SCH (08:46)
[2019-01-04] MEDS: ERGOCALCIFEROL 50000UNITS CAPSULE PO SCH (08:47)
[2019-01-04] MEDS: FERROUS SULFATE 325MG TABLET PO SCH ×3 (08:47→16:27)
[2019-01-04] MEDS: FAMOTIDINE 20MG TABLET PO SCH (08:47)
[2019-01-04] MEDS: HYDRALAZINE HCL 50MG TABLET PO SCH ×2 (08:47→20:37)
[2019-01-04] MEDS: GUAIFENESIN 600MG ER TABLET PO SCH ×2 (08:48→20:37)
[2019-01-04] MEDS: DOCUSATE SODIUM 250MG CAPSULE PO SCH ×2 (08:52→16:30)
[2019-01-04 12:08] LABS: PLATELET ESTIMATE NORMAL
[2019-01-04 20:00] VITALS: BP 144/79
[2019-01-05] MEDS: LEVOTHYROXINE SODIUM 137MCG TABLET PO SCH (06:06)
[2019-01-05 06:34] LABS: HEMATOCRIT. 25.7 % (36.0-48.0); HEMOGLOBIN. 8.5 g/dL (12.0-16.0); MEAN CORPUSCULAR HEMOGLOBIN 30.6 pg (28.0-32.0); MEAN CORPUSCULAR VOLUME 92.9 fL (81.0-99.0); MEAN PLATELET VOLUME 9.4 fl (7.4-10.4); PLATELET 228 x1000/uL (130-400); RED BLOOD CELL COUNT 2.76 mill/uL (4.2-5.4); RED CELL DISTRIBUTION WIDTH 18.8 % (11.6-14.6)
[2019-01-05 08:00] VITALS: BP 146/76
[2019-01-05] MEDS: POTASSIUM CHLORIDE 20MEQ TABLET SR PO SCH (08:49)
[2019-01-05] MEDS: GUAIFENESIN 600MG ER TABLET PO SCH ×2 (08:49→20:39)
[2019-01-05] MEDS: FERROUS SULFATE 325MG TABLET PO SCH ×3 (08:49→16:59)
[2019-01-05] MEDS: HYDRALAZINE HCL 50MG TABLET PO SCH ×2 (08:49→20:39)
[2019-01-05] MEDS: FAMOTIDINE 20MG TABLET PO SCH (08:49)
[2019-01-05] MEDS: DOCUSATE SODIUM 250MG CAPSULE PO SCH ×2 (08:54→15:52)
[2019-01-05 20:00] VITALS: BP 165/89
[2019-01-05 20:15] LABS: PLATELET ESTIMATE NORMAL
[2019-01-05 22:05] VITALS: BP 142/71
[2019-01-06] MEDS: LEVOTHYROXINE SODIUM 137MCG TABLET PO SCH (06:15)
[2019-01-06 06:44] LABS: BASOPHILS % 0.9 % (0.0-2.0); EOSINOPHILS % 11.1 % (0.0-5.0); HEMATOCRIT. 26.2 % (36.0-48.0); HEMOGLOBIN. 8.6 g/dL (12.0-16.0); MEAN CORPUSCULAR HEMOGLOBIN 30.6 pg (28.0-32.0); MEAN CORPUSCULAR VOLUME 93.1 fL (81.0-99.0); MEAN PLATELET VOLUME 9.2 fl (7.4-10.4); MONOCYTES % 11.8 % (2.0-8.0); NEUTROPHILS % 50.2 % (40.0-76.0); PLATELET 233 x1000/uL (130-400); RED BLOOD CELL COUNT 2.81 mill/uL (4.2-5.4); RED CELL DISTRIBUTION WIDTH 18.5 % (11.6-14.6)
[2019-01-06 08:00] VITALS: BP 155/75
[2019-01-06] MEDS: HYDRALAZINE HCL 50MG TABLET PO SCH (08:42)
[2019-01-06] MEDS: POTASSIUM CHLORIDE 20MEQ TABLET SR PO SCH (08:43)
[2019-01-06] MEDS: GUAIFENESIN 600MG ER TABLET PO SCH (08:43)
[2019-01-06] MEDS: FAMOTIDINE 20MG TABLET PO SCH (08:43)
[2019-01-06] MEDS: FERROUS SULFATE 325MG TABLET PO SCH ×2 (08:43→13:00)
[2019-01-06] MEDS: DOCUSATE SODIUM 250MG CAPSULE PO SCH (08:44)
[2019-01-06 11:22] VITALS: BP 155/75
== END 2019-01-06 15:50 | disposition home health service (06) | DRG 987 ==
PROVIDERS: ADMIT Physical Medicine & Rehabilitation Spinal Cord Injury Medicine; ATTEND Family Medicine Adult Medicine
PROC: 0UDB7ZZ Extraction of Endometrium, Via Natural or Artificial Opening (ICD-10-PCS; principal; 2019-01-03)
DX: G62.81 Critical illness polyneuropathy (principal); A41.9 Sepsis, unspecified organism; J18.9 Pneumonia, unspecified organism; K85.90 Acute pancreatitis without necrosis or infection, unspecified; E43 Unspecified severe protein-calorie malnutrition; R53.2 Functional quadriplegia; I50.33 Acute on chronic diastolic (congestive) heart failure; K65.9 Peritonitis, unspecified; G93.40 Encephalopathy, unspecified; N17.9 Acute kidney failure, unspecified; K57.32 Diverticulitis of large intestine without perforation or abscess without bleeding; N39.0 Urinary tract infection, site not specified; M62.82 Rhabdomyolysis; I13.0 Hypertensive heart and chronic kidney disease with heart failure and stage 1 through stage 4 chronic kidney disease, or unspecified chronic kidney disease; E03.9 Hypothyroidism, unspecified; E55.9 Vitamin D deficiency, unspecified; E78.5 Hyperlipidemia, unspecified; I12.9 Hypertensive chronic kidney disease with stage 1 through stage 4 chronic kidney disease, or unspecified chronic kidney disease; I48.0 Paroxysmal atrial fibrillation; N18.9 Chronic kidney disease, unspecified; K59.00 Constipation, unspecified; K66.8 Other specified disorders of peritoneum; N95.0 Postmenopausal bleeding; R53.81 Other malaise; E66.9 Obesity, unspecified; Z60.2 Problems related to living alone; D69.6 Thrombocytopenia, unspecified; D50.9 Iron deficiency anemia, unspecified; D63.1 Anemia in chronic kidney disease; E87.6 Hypokalemia; R26.9 Unspecified abnormalities of gait and mobility; D25.9 Leiomyoma of uterus, unspecified; Z68.33 Body mass index [BMI] 33.0-33.9, adult; Z82.49 Family history of ischemic heart disease and other diseases of the circulatory system; Z87.01 Personal history of pneumonia (recurrent); Z93.3 Colostomy status; Z95.0 Presence of cardiac pacemaker; Z87.891 Personal history of nicotine dependence; Z88.0 Allergy status to penicillin
CPT/HCPCS: 36415; 76830; 76856; 80048; 82270; 82306; 82607; 82728; 82746; 83520; 83540; 83550; 83735; 84100; 84134; 84439; 84443; 84480; 84481; 85027; 86376; 88305; 92523; 92610; 93005; 93970; 94640; 97110; 97116; 97162; 97167; 97530; 97535; A6261; G0515; J0885; J1200; J1885; J2250; J2704; J3010; J3490; J7620

== ENCOUNTER → 2019-05-19 | Outpatient (CLI) | payer MEDICARE | END | disposition home or self-care (01) | LOC: RAD 10:52 | PROVIDERS: ATTEND Specialist | DX: R05 Cough (principal); Z95.0 Presence of cardiac pacemaker | CPT/HCPCS: 71046 ==

== ENCOUNTER → 2019-05-27 | Outpatient (CLI) | payer MEDICARE ==
[~2019-05-27] MED LIST changes: +ASPI-1393 PO; -BYSTOLIC; +CLON0.1T PO; +DIATR MEGLU/DIATRIZOATE SOLN 120ML ONE; +DIATR MEGLU/DIATRIZOATE SOLN 30ML ONE; -DYAZIDE; +LEVO137T2 PO; -LOSARTAN; +NEBI20TA2 PO; +TRIA1TAB92 PO
== END | disposition home or self-care (01) ==
LOC: RAD 09:39
PROVIDERS: ATTEND Surgery
DX: Z43.3 Encounter for attention to colostomy (principal); I25.10 Atherosclerotic heart disease of native coronary artery without angina pectoris; I12.9 Hypertensive chronic kidney disease with stage 1 through stage 4 chronic kidney disease, or unspecified chronic kidney disease; N18.3 Chronic kidney disease, stage 3 (moderate); E78.00 Pure hypercholesterolemia, unspecified; I49.5 Sick sinus syndrome; I48.0 Paroxysmal atrial fibrillation; Z95.0 Presence of cardiac pacemaker; Z98.890 Other specified postprocedural states
CPT/HCPCS: 74270; Q9963

== ENCOUNTER 2019-06-02 05:26 | Inpatient (IN) | payer MEDICARE ==
[~2019-06-02] VITALS: Ht 167.6 cm; Wt 72.6 kg
[2019-06-02] MEDS ORDERED: SKIN ADHESIVE 0.7 GM EA TOP ONE (06:13)
[2019-06-02] MEDS ORDERED: BUPIVACAINE HCL 0.5% (5MG/ML) 50ML ONE (06:13)
[2019-06-02] MEDS ORDERED: MORPHINE SULFATE 2 MG/ML CPJ (NOT FOR IM USE) IV PRN (06:15)
[2019-06-02] MEDS ORDERED: ONDANSETRON HCL 4MG/2ML INJ IV PRN ×2 (06:15→09:30)
[2019-06-02] MEDS ORDERED: NEBI20TA2 PO (06:26)
[2019-06-02] MEDS ORDERED: CLON0.1T PO (06:26)
[2019-06-02] MEDS ORDERED: LEVO137T2 PO (06:26)
[2019-06-02] MEDS ORDERED: TRIA1TAB92 PO (06:26)
[2019-06-02] MEDS ORDERED: ASPI-1393 PO (06:27)
[2019-06-02] MEDS ORDERED: LACTATED RINGERS 1,000 ML IV SCH (06:30)
[2019-06-02 06:46] LABS: BASOPHILS % 1.2 % (0.0-2.0); EOSINOPHILS % 2.9 % (0.0-5.0); HEMATOCRIT. 39.1 % (36.0-48.0); HEMOGLOBIN. 13.1 g/dL (12.0-16.0); MEAN CORPUSCULAR HEMOGLOBIN 30.2 pg (28.0-32.0); MEAN CORPUSCULAR VOLUME 90.4 fL (81.0-99.0); MEAN PLATELET VOLUME 10.2 fl (7.4-10.4); MONOCYTES % 13.1 % (2.0-8.0); NEUTROPHILS % 42.8 % (40.0-76.0); PLATELET 186 x1000/uL (130-400); RED BLOOD CELL COUNT 4.32 mill/uL (4.2-5.4); RED CELL DISTRIBUTION WIDTH 16.5 % (11.6-14.6)
[2019-06-02] MEDS ORDERED: PROPOFOL 200MG/20ML VIAL IV ONE (07:05)
[2019-06-02] MEDS ORDERED: ROCURONIUM BROMIDE 10MG/ML VIAL 5ML IV ONE (07:05)
[2019-06-02] MEDS ORDERED: SODIUM CHLORIDE 0.9% 10ML VIAL ONE (07:05)
[2019-06-02] MEDS ORDERED: MIDAZOLAM HCL 2 MG/2 ML VIAL ONE (07:05)
[2019-06-02] MEDS ORDERED: NEOSTIGMINE METHYLSULFATE 1MG/ML 10 ML VIAL ONE (07:05)
[2019-06-02] MEDS ORDERED: SUCCINYLCHOLINE CHLORIDE 200MG/10ML IV ONE (07:05)
[2019-06-02] MEDS ORDERED: GLYCOPYRROLATE 0.2 MG/ML 2ML VIAL ONE (07:05)
[2019-06-02] MEDS ORDERED: EPHEDRINE SULFATE 50MG/ML VIAL ONE (07:05)
[2019-06-02] MEDS ORDERED: FENTANYL CITRATE/PF 50MCG/ML 2ML VIAL ONE (07:05)
[2019-06-02] MEDS ORDERED: PHENYLEPHRINE HCL 10 MG/ML 1ML (IV VIAL) IV ONE (07:06)
[2019-06-02] MEDS ORDERED: METOCLOPRAMIDE HCL 10MG/2ML VIAL ONE (07:06)
[2019-06-02 07:39] LABS: PARTIAL THROMBOPLASTIN TIME 26.5 sec (23.4-31.0)
[2019-06-02] MEDS ORDERED: METHYLENE BLUE 50 MG/10 ML AMP IV ONE (08:16)
[2019-06-02] MEDS ORDERED: ALBUMIN HUMAN 12.5G/250ML (5%) IV ONE ×2 (08:16→11:15)
[2019-06-02 09:11] LABS: BASOPHILS % 0.5 % (0.0-2.0); EOSINOPHILS % 1.4 % (0.0-5.0); HEMATOCRIT. 32.3 % (36.0-48.0); HEMOGLOBIN. 10.7 g/dL (12.0-16.0); LYMPHOCYTES % 33.8 % (20.0-50.0); MEAN CORPUSCULAR HEMOGLOBIN 30.2 pg (28.0-32.0); MEAN CORPUSCULAR VOLUME 91.3 fL (81.0-99.0); MEAN PLATELET VOLUME 10.2 fl (7.4-10.4); MONOCYTES % 8.9 % (2.0-8.0); NEUTROPHILS % 55.4 % (40.0-76.0); PLATELET 167 x1000/uL (130-400); RED BLOOD CELL COUNT 3.54 mill/uL (4.2-5.4); RED CELL DISTRIBUTION WIDTH 16.3 % (11.6-14.6)
[2019-06-02] MEDS ORDERED: MEPERIDINE HCL/PF 25MG/ML CPJ IV PRN (09:30)
[2019-06-02] MEDS ORDERED: HYDROMORPHONE HCL/PF 2MG/ML CPJ ONE (09:36)
[2019-06-02] MEDS: HYDROMORPHONE HCL/PF 2MG/ML CPJ IV PRN ×5 (09:37→13:18)
[2019-06-02] MEDS ORDERED: SODIUM CHLORIDE 0.9% 1,000 ML IV NR (09:41)
[2019-06-02] MEDS ORDERED: ONDANSETRON INJ IV PRN (10:15)
[2019-06-02] MEDS ORDERED: NALOXONE INJ IV PRN (10:15)
[2019-06-02 10:54] LABS: HEMATOCRIT 30.5 % (36.0-48.0)
[2019-06-02] MEDS ORDERED: ALBUMIN HUMAN 12.5G/250ML (5%) IV NR (11:45)
[2019-06-02] MEDS: HYDROMORPHONE PCA 10MG/50ML IV PRN (13:38)
[2019-06-02 14:55] VITALS: BP 118/76
[2019-06-02 16:00] VITALS: BP 127/66
[2019-06-02 18:08] LABS: HEMOGLOBIN. 10.2 g/dL (12.0-16.0); MEAN CORPUSCULAR HEMOGLOBIN 29.4 pg (28.0-32.0); MEAN CORPUSCULAR VOLUME 92.2 fL (81.0-99.0); MEAN PLATELET VOLUME 9.6 fl (7.4-10.4); PLATELET 154 x1000/uL (130-400); RED BLOOD CELL COUNT 3.48 mill/uL (4.2-5.4); RED CELL DISTRIBUTION WIDTH 16.3 % (11.6-14.6)
[2019-06-02] MEDS: DEXT 5%/0.45% NACL KCL 20MEQ/L 1,000 ML IV SCH (18:08)
[2019-06-02] MEDS: METRONIDAZOLE 500 MG PREMIX 100 ML IV SCH (18:09)
[2019-06-02 19:29] LABS: PLATELET ESTIMATE NORMAL
[2019-06-02 20:00] VITALS: BP 110/62
[2019-06-03] VITALS: BP 126/55
[2019-06-03] MEDS: METRONIDAZOLE 500 MG PREMIX 100 ML IV SCH ×2 (02:20→10:13)
[2019-06-03] MEDS: DEXT 5%/0.45% NACL KCL 20MEQ/L 1,000 ML IV SCH ×2 (03:59→14:27)
[2019-06-03 04:00] VITALS: BP 109/52
[2019-06-03] MEDS ORDERED: LEVOFLOXACIN 500MG PREMIX 100 ML IV SCH (07:00)
[2019-06-03 08:00] VITALS: BP 107/63
[2019-06-03] MEDS ORDERED: SODIUM CHLORIDE 0.9% 500 ML IV NR (08:42)
[2019-06-03] MEDS: FAMOTIDINE 20MG/2ML VIAL IV SCH (08:45)
[2019-06-03 16:00] VITALS: BP 116/56
[2019-06-03 20:00] VITALS: BP 139/56
[2019-06-04] VITALS: BP 136/55
[2019-06-04] MEDS: DEXT 5%/0.45% NACL KCL 20MEQ/L 1,000 ML IV SCH ×2 (00:17→10:13)
[2019-06-04 04:00] VITALS: BP 121/54
[2019-06-04 08:00] VITALS: BP 142/83
[2019-06-04] MEDS: DIPHENHYDRAMINE INJ IV PRN (08:08)
[2019-06-04] MEDS: FAMOTIDINE 20MG/2ML VIAL IV SCH (09:42)
[2019-06-04 12:43] VITALS: BP 118/62
[2019-06-04 14:50] LABS: BASOPHILS % 0.4 % (0.0-2.0); EOSINOPHILS % 0.6 % (0.0-5.0); HEMATOCRIT. 26.1 % (36.0-48.0); HEMOGLOBIN. 8.4 g/dL (12.0-16.0); LYMPHOCYTES % 7.1 % (20.0-50.0); MEAN CORPUSCULAR HEMOGLOBIN 29.8 pg (28.0-32.0); MEAN CORPUSCULAR VOLUME 92.7 fL (81.0-99.0); MONOCYTES % 8.9 % (2.0-8.0); RED BLOOD CELL COUNT 2.81 mill/uL (4.2-5.4); RED CELL DISTRIBUTION WIDTH 16.6 % (11.6-14.6)
[2019-06-04 14:54] LABS: CHLORIDE 112 mEq/L (98-107); CHLORIDE 114 mEq/L (98-107)
[2019-06-04 16:00] VITALS: BP 144/56
[2019-06-04 16:08] LABS: MEAN PLATELET VOLUME 10.7 fl (7.4-10.4); PLATELET 128 x1000/uL (130-400)
[2019-06-04 20:00] VITALS: BP 150/65
[2019-06-04] MEDS: ACETAMINOPHEN 650MG SUPP PR PRN (20:39)
[2019-06-04] MEDS: DEXT 5%/0.45% NACL 1000ML 1,000 ML IV SCH (23:15)
[2019-06-05] VITALS: BP 112/84
[2019-06-05 04:00] VITALS: BP 146/76
[2019-06-05] MEDS: LEVOTHYROXINE SODIUM 137MCG TABLET PO SCH (06:27)
[2019-06-05 07:52] LABS: BASOPHILS % 0.5 % (0.0-2.0); EOSINOPHILS % 2.7 % (0.0-5.0); HEMATOCRIT. 24.1 % (36.0-48.0); LYMPHOCYTES % 11.6 % (20.0-50.0); MEAN CORPUSCULAR HEMOGLOBIN 30.5 pg (28.0-32.0); MEAN CORPUSCULAR VOLUME 92.3 fL (81.0-99.0); MEAN PLATELET VOLUME 9.9 fl (7.4-10.4); MONOCYTES % 11.3 % (2.0-8.0); NEUTROPHILS % 73.9 % (40.0-76.0); PLATELET 123 x1000/uL (130-400); RED BLOOD CELL COUNT 2.61 mill/uL (4.2-5.4)
[2019-06-05 08:00] VITALS: BP 153/58
[2019-06-05] MEDS: FAMOTIDINE 20MG/2ML VIAL IV SCH (08:30)
[2019-06-05] MEDS: DEXT 5%/0.45% NACL 1000ML 1,000 ML IV SCH (08:30)
[2019-06-05] MEDS: DIPHENHYDRAMINE INJ IV PRN (09:16)
[2019-06-05 12:00] VITALS: BP 151/77
[2019-06-05 12:27] LABS: CLARITY URINE CLOUDY (CLEAR); COLOR URINE YELLOW (YELLOW); KETONES URINE NEGATIVE (NEGATIVE); LEUKOCYTE ESTERASE URINE TRACE (NEGATIVE); NITRITE URINE NEGATIVE (NEGATIVE); OCCULT BLOOD URINE NEGATIVE (NEGATIVE); PROTEIN URINE NEGATIVE (NEGATIVE); SPECIFIC GRAVITY URINE 1.013 (1.005-1.030); UROBILINOGEN URINE 0.2 E.U./dL (0.2-1.0)
[2019-06-05] MEDS ORDERED: LABETALOL 5MG/ML SYR 20 MG/4 ML SYRINGE IV PRN (12:45)
[2019-06-05 16:00] VITALS: BP 124/45
[2019-06-05 20:00] VITALS: BP 144/60
[2019-06-06] VITALS: BP 148/70
[2019-06-06 04:00] VITALS: BP 156/83
[2019-06-06 06:07] LABS: BASOPHILS % 0.5 % (0.0-2.0); EOSINOPHILS % 4.7 % (0.0-5.0); HEMATOCRIT. 27.8 % (36.0-48.0); HEMOGLOBIN. 9.1 g/dL (12.0-16.0); LYMPHOCYTES % 7.7 % (20.0-50.0); MEAN CORPUSCULAR HEMOGLOBIN 30.6 pg (28.0-32.0); MEAN CORPUSCULAR VOLUME 93.2 fL (81.0-99.0); MEAN PLATELET VOLUME 9.8 fl (7.4-10.4); MONOCYTES % 11.8 % (2.0-8.0); NEUTROPHILS % 75.3 % (40.0-76.0); PLATELET 154 x1000/uL (130-400); RED BLOOD CELL COUNT 2.99 mill/uL (4.2-5.4); RED CELL DISTRIBUTION WIDTH 16.5 % (11.6-14.6)
[2019-06-06] MEDS: DEXT 5%/0.45% NACL 1000ML 1,000 ML IV SCH ×2 (06:09→18:00)
[2019-06-06] MEDS: LEVOTHYROXINE SODIUM 137MCG TABLET PO SCH (06:18)
[2019-06-06 08:00] VITALS: BP 138/75
[2019-06-06] MEDS: FAMOTIDINE 20MG/2ML VIAL IV SCH (08:48)
[2019-06-06] MEDS: ACETAMINOPHEN 650MG SUPP PR PRN (11:14)
[2019-06-06 12:00] VITALS: BP 141/67
[2019-06-06 16:00] VITALS: BP 142/65
[2019-06-06 20:00] VITALS: BP 144/77
[2019-06-07] VITALS: BP 123/86
[2019-06-07 04:00] VITALS: BP 130/61
[2019-06-07 06:39] LABS: HEMATOCRIT. 24.9 % (36.0-48.0); HEMOGLOBIN. 8.3 g/dL (12.0-16.0); MEAN CORPUSCULAR HEMOGLOBIN 31.1 pg (28.0-32.0); MEAN CORPUSCULAR VOLUME 93.3 fL (81.0-99.0); MEAN PLATELET VOLUME 9.6 fl (7.4-10.4); PLATELET 141 x1000/uL (130-400); RED BLOOD CELL COUNT 2.67 mill/uL (4.2-5.4); RED CELL DISTRIBUTION WIDTH 16.4 % (11.6-14.6)
[2019-06-07] MEDS: HYDROMORPHONE PCA 10MG/50ML IV PRN (07:58)
[2019-06-07] MEDS: LEVOTHYROXINE SODIUM 137MCG TABLET PO SCH (09:16)
[2019-06-07] MEDS: FAMOTIDINE 20MG/2ML VIAL IV SCH (09:16)
[2019-06-07 20:00] VITALS: BP 167/78
[2019-06-07] MEDS ORDERED: METOPROLOL TARTRATE 25MG TABLET PO NR (22:30)
[2019-06-07] MEDS ORDERED: CLONIDINE 0.1MG TABLET PO PRN (22:30)
[2019-06-08] VITALS: BP 162/85
[2019-06-08 04:00] VITALS: BP 146/68
[2019-06-08] MEDS: LEVOTHYROXINE SODIUM 137MCG TABLET PO SCH (06:19)
[2019-06-08] MEDS: DEXT 5%/0.45% NACL 1000ML 1,000 ML IV SCH ×2 (06:20→21:17)
[2019-06-08 06:44] LABS: HEMATOCRIT. 25.4 % (36.0-48.0); HEMOGLOBIN. 8.3 g/dL (12.0-16.0); MEAN CORPUSCULAR HEMOGLOBIN 30.5 pg (28.0-32.0); MEAN CORPUSCULAR VOLUME 92.9 fL (81.0-99.0); PLATELET 136 x1000/uL (130-400); RED BLOOD CELL COUNT 2.74 mill/uL (4.2-5.4); RED CELL DISTRIBUTION WIDTH 16.4 % (11.6-14.6)
[2019-06-08] MEDS: METOPROLOL TARTRATE 25MG TABLET PO SCH (09:00)
[2019-06-08] MEDS: FAMOTIDINE 20MG/2ML VIAL IV SCH (09:00)
[2019-06-08 13:39] LABS: NUCLEATED RED BLOOD CELLS 1 /100 WBC
[2019-06-08 13:40] LABS: PLATELET ESTIMATE NORMAL
[2019-06-08 20:00] VITALS: BP 165/67
[2019-06-09] VITALS: BP 150/70
[2019-06-09 04:00] VITALS: BP 109/61
[2019-06-09 06:44] LABS: MEAN CORPUSCULAR VOLUME 92.7 fL (81.0-99.0); MEAN PLATELET VOLUME 9.9 fl (7.4-10.4); PLATELET 142 x1000/uL (130-400); RED BLOOD CELL COUNT 2.59 mill/uL (4.2-5.4); RED CELL DISTRIBUTION WIDTH 16.4 % (11.6-14.6)
[2019-06-09] MEDS: LEVOTHYROXINE SODIUM 137MCG TABLET PO SCH (06:57)
[2019-06-09] MEDS: METOPROLOL TARTRATE 25MG TABLET PO SCH (09:11)
[2019-06-09] MEDS: FAMOTIDINE 20MG/2ML VIAL IV SCH (09:11)
[2019-06-09 09:33] LABS: NUCLEATED RED BLOOD CELLS 2 /100 WBC; PLATELET ESTIMATE NORMAL
[2019-06-09 10:40] LABS: NUCLEATED RED BLOOD CELLS 1 /100 WBC
[2019-06-09 10:41] LABS: PLATELET ESTIMATE NORMAL
[2019-06-09 15:42] VITALS: BP 137/87
== END 2019-06-09 18:28 | DRG 333 ==
LOC: OR 05:26 → 6EST 05:27 → EDSTATUS 07:30
PROVIDERS: ADMIT Surgery; ATTEND Surgery
PROC: 0DBP0ZZ Excision of Rectum, Open Approach (ICD-10-PCS; principal; 2019-06-02)
DX: K57.20 Diverticulitis of large intestine with perforation and abscess without bleeding (principal); K56.7 Ileus, unspecified; E87.2 Acidosis; N17.9 Acute kidney failure, unspecified; E44.0 Moderate protein-calorie malnutrition; I48.0 Paroxysmal atrial fibrillation; I49.5 Sick sinus syndrome; E78.5 Hyperlipidemia, unspecified; N18.9 Chronic kidney disease, unspecified; K43.5 Parastomal hernia without obstruction or gangrene; R26.9 Unspecified abnormalities of gait and mobility; Z43.3 Encounter for attention to colostomy; D50.9 Iron deficiency anemia, unspecified; D69.6 Thrombocytopenia, unspecified; E03.9 Hypothyroidism, unspecified; G62.9 Polyneuropathy, unspecified; I12.9 Hypertensive chronic kidney disease with stage 1 through stage 4 chronic kidney disease, or unspecified chronic kidney disease; Z95.0 Presence of cardiac pacemaker; Z68.25 Body mass index [BMI] 25.0-25.9, adult
CPT/HCPCS: 36415; 76770; 80048; 81003; 83540; 83550; 83735; 85014; 85018; 86850; 86900; 86920; 88305; 88307; 93005; 97162; 97165; 97530; J0330; J1170; J1200; J1956; J2250; J2370; J2405; J2704; J2710; J2765; J3010; J3490; J7040; P9041; Q9968

== ENCOUNTER 2019-06-09 18:25 | Inpatient (IN) | payer MEDICARE ==
[~2019-06-09] VITALS: Ht 167.6 cm; Wt 72.6 kg
[~2019-06-09 18:25] MED LIST changes: -DIATR MEGLU/DIATRIZOATE SOLN 120ML ONE; -DIATR MEGLU/DIATRIZOATE SOLN 30ML ONE
[2019-06-09 19:30] VITALS: BP 129/58
[2019-06-09 20:00] VITALS: BP 127/58
[2019-06-09] MEDS ORDERED: DIPHENHYDRAMINE 25MG CAPSULE PO PRN (20:30)
[2019-06-09] MEDS ORDERED: ACETAMINOPHEN 650MG/20.3ML UDC PO PRN (20:30)
[2019-06-09] MEDS ORDERED: CLONIDINE 0.1MG TABLET PO PRN (20:30)
[2019-06-09] MEDS ORDERED: ONDANSETRON HCL 4MG TABLET PO PRN ×2 (20:30)
[2019-06-09] MEDS ORDERED: SODIUM CHLORIDE 0.9% INJ 3ML FLUSH IVF PRN (20:45)
[2019-06-10] MEDS: LEVOTHYROXINE SODIUM 25MCG TABLET PO SCH (06:38)
[2019-06-10 08:20] VITALS: BP 141/88
[2019-06-10] MEDS: FAMOTIDINE 20MG TABLET PO SCH (08:48)
[2019-06-10 10:08] VITALS: BP 141/88
[2019-06-10 10:46] LABS: HEMATOCRIT. 22.8 % (36.0-48.0); HEMOGLOBIN. 7.5 g/dL (12.0-16.0); MEAN CORPUSCULAR HEMOGLOBIN 30.3 pg (28.0-32.0); MEAN CORPUSCULAR VOLUME 91.6 fL (81.0-99.0); MEAN PLATELET VOLUME 10.3 fl (7.4-10.4); PLATELET 131 x1000/uL (130-400); RED BLOOD CELL COUNT 2.49 mill/uL (4.2-5.4); RED CELL DISTRIBUTION WIDTH 16.3 % (11.6-14.6)
[2019-06-10 12:04] LABS: CHLORIDE 116 mEq/L (98-107)
[2019-06-10] MEDS: ENOXAPARIN 80MG/0.8ML SYR SUBCUT SCH (13:06)
[2019-06-10 15:09] LABS: PROTHROMBIN TIME 10.7 sec (9.6-11.0)
[2019-06-10] MEDS ORDERED: SODIUM CHLORIDE 0.45% 500 ML IV ONE (15:30)
[2019-06-10] MEDS: FERROUS SULFATE 325MG TABLET PO SCH (16:53)
[2019-06-10 17:45] LABS: PLATELET ESTIMATE NORMAL
[2019-06-10 20:00] VITALS: BP 101/50
[2019-06-11] MEDS: LEVOTHYROXINE SODIUM 25MCG TABLET PO SCH (06:16)
[2019-06-11 07:15] LABS: HEMATOCRIT. 23.4 % (36.0-48.0); HEMOGLOBIN. 7.7 g/dL (12.0-16.0); MEAN CORPUSCULAR HEMOGLOBIN 30.5 pg (28.0-32.0); MEAN CORPUSCULAR VOLUME 92.4 fL (81.0-99.0); MEAN PLATELET VOLUME 10.3 fl (7.4-10.4); PLATELET 177 x1000/uL (130-400); RED BLOOD CELL COUNT 2.53 mill/uL (4.2-5.4); RED CELL DISTRIBUTION WIDTH 16.3 % (11.6-14.6)
[2019-06-11 08:20] VITALS: BP 132/65
[2019-06-11] MEDS: FERROUS SULFATE 325MG TABLET PO SCH ×3 (09:08→17:57)
[2019-06-11] MEDS: FAMOTIDINE 20MG TABLET PO SCH (09:08)
[2019-06-11] MEDS: ENOXAPARIN 80MG/0.8ML SYR SUBCUT SCH (15:10)
[2019-06-11 16:16] LABS: PLATELET ESTIMATE NORMAL
[2019-06-11 20:00] VITALS: BP 137/54
[2019-06-11] MEDS: METOPROLOL TARTRATE 25MG TABLET PO SCH (20:55)
[2019-06-11] MEDS ORDERED: BACITRACIN 15GM TUBE TOP SCH (21:00)
[2019-06-11] MEDS: EPOETIN ALFA 10000UNITS/ML VIAL SUBCUT SCH (21:50)
[2019-06-11] MEDS: MUPIROCIN 2% OINT 22GM NS SCH (21:50)
[2019-06-12 02:21] LABS: CLARITY URINE CLOUDY (CLEAR); COLOR URINE YELLOW (YELLOW); KETONES URINE NEGATIVE (NEGATIVE); LEUKOCYTE ESTERASE URINE 2+ (NEGATIVE); NITRITE URINE NEGATIVE (NEGATIVE); OCCULT BLOOD URINE 1+ (NEGATIVE); PROTEIN URINE TRACE (NEGATIVE); SPECIFIC GRAVITY URINE 1.017 (1.005-1.030); UROBILINOGEN URINE 0.2 E.U./dL (0.2-1.0)
[2019-06-12] MEDS: LEVOTHYROXINE SODIUM 25MCG TABLET PO SCH (06:02)
[2019-06-12 07:58] LABS: HEMATOCRIT. 21.9 % (36.0-48.0); HEMOGLOBIN. 7.1 g/dL (12.0-16.0); MEAN CORPUSCULAR HEMOGLOBIN 30.1 pg (28.0-32.0); MEAN CORPUSCULAR VOLUME 92.2 fL (81.0-99.0); MEAN PLATELET VOLUME 10.3 fl (7.4-10.4); PLATELET 186 x1000/uL (130-400); RED BLOOD CELL COUNT 2.37 mill/uL (4.2-5.4); RED CELL DISTRIBUTION WIDTH 16.8 % (11.6-14.6)
[2019-06-12 08:00] VITALS: BP 131/59
[2019-06-12 08:04] LABS: FOLIC ACID (FOLATE) SERUM 9.6 ng/mL (>5.38)
[2019-06-12 08:10] LABS: PHOSPHORUS 3.2 mg/dL (2.5-4.9)
[2019-06-12] MEDS: METOPROLOL TARTRATE 25MG TABLET PO SCH (08:57)
[2019-06-12] MEDS: FERROUS SULFATE 325MG TABLET PO SCH ×3 (08:57→16:32)
[2019-06-12] MEDS: MUPIROCIN 2% OINT 22GM NS SCH ×2 (09:02→20:50)
[2019-06-12] MEDS: FAMOTIDINE 20MG TABLET PO SCH (09:03)
[2019-06-12] MEDS: SULFAMETHOXAZOLE/TRIMETHOPRIM 400/80MG TAB PO SCH ×3 (09:30→20:49)
[2019-06-12 11:42] LABS: PLATELET ESTIMATE NORMAL
[2019-06-12] MEDS ORDERED: NITROFURANTOIN MACROCRYSTAL 25MG CAPSULE PO SCH (12:00)
[2019-06-12] MEDS: ENOXAPARIN 80MG/0.8ML SYR SUBCUT SCH (13:15)
[2019-06-12 20:00] VITALS: BP 147/60
[2019-06-12] MEDS: CYANOCOBALAMIN 1000MCG/ML VIAL IM SCH (20:49)
[2019-06-12 21:44] VITALS: BP 114/51
[2019-06-12 22:00] VITALS: BP 124/52
[2019-06-12 22:15] VITALS: BP 112/52
[2019-06-12 23:14] VITALS: BP 126/55
[2019-06-13 00:23] VITALS: BP 125/57
[2019-06-13] MEDS: LEVOTHYROXINE SODIUM 25MCG TABLET PO SCH (06:45)
[2019-06-13 07:35] LABS: HEMOGLOBIN. 8.4 g/dL (12.0-16.0); MEAN CORPUSCULAR HEMOGLOBIN 30.4 pg (28.0-32.0); MEAN CORPUSCULAR VOLUME 90.8 fL (81.0-99.0); MEAN PLATELET VOLUME 10.4 fl (7.4-10.4); PLATELET 213 x1000/uL (130-400); RED BLOOD CELL COUNT 2.75 mill/uL (4.2-5.4); RED CELL DISTRIBUTION WIDTH 16.1 % (11.6-14.6)
[2019-06-13 08:00] VITALS: BP 122/44
[2019-06-13] MEDS ORDERED: POTASSIUM CHLORIDE 20MEQ TABLET SR PO NR (08:30)
[2019-06-13] MEDS: FAMOTIDINE 20MG TABLET PO SCH (09:16)
[2019-06-13] MEDS: CYANOCOBALAMIN 1000MCG/ML VIAL IM SCH (09:16)
[2019-06-13] MEDS: MUPIROCIN 2% OINT 22GM NS SCH ×2 (09:17→21:57)
[2019-06-13] MEDS: FERROUS SULFATE 325MG TABLET PO SCH (09:17)
[2019-06-13] MEDS: METOPROLOL TARTRATE 25MG TABLET PO SCH (09:17)
[2019-06-13 09:43] LABS: NUCLEATED RED BLOOD CELLS 1 /100 WBC
[2019-06-13 09:44] LABS: PLATELET ESTIMATE NORMAL
[2019-06-13] MEDS: LEVOFLOXACIN 250MG TABLET PO SCH (10:59)
[2019-06-13] MEDS: ENOXAPARIN 80MG/0.8ML SYR SUBCUT SCH (12:27)
[2019-06-13] MEDS ORDERED: POTASSIUM CHLORIDE 20MEQ TABLET SR PO ONE (12:30)
[2019-06-13 20:00] VITALS: BP 145/70
[2019-06-13] MEDS: EPOETIN ALFA 10000UNITS/ML VIAL SUBCUT SCH (21:57)
[2019-06-13] MEDS: IRON SUCROSE COMPLEX 100 MG in SODIUM CHLORIDE 0.9% 100 ML IV SCH (23:12)
[2019-06-14] MEDS: LEVOTHYROXINE SODIUM 25MCG TABLET PO SCH (06:29)
[2019-06-14 07:20] LABS: HEMATOCRIT. 24.4 % (36.0-48.0); MEAN CORPUSCULAR VOLUME 91.5 fL (81.0-99.0); MEAN PLATELET VOLUME 10.2 fl (7.4-10.4); PLATELET 237 x1000/uL (130-400); RED BLOOD CELL COUNT 2.66 mill/uL (4.2-5.4); RED CELL DISTRIBUTION WIDTH 16.4 % (11.6-14.6)
[2019-06-14 07:56] VITALS: BP 134/60
[2019-06-14 08:20] VITALS: BP 134/60
[2019-06-14] MEDS: METOPROLOL TARTRATE 25MG TABLET PO SCH (08:55)
[2019-06-14] MEDS: MUPIROCIN 2% OINT 22GM NS SCH ×2 (08:56→20:46)
[2019-06-14] MEDS: CYANOCOBALAMIN 1000MCG/ML VIAL IM SCH (08:56)
[2019-06-14] MEDS: FAMOTIDINE 20MG TABLET PO SCH (08:56)
[2019-06-14 11:28] LABS: PLATELET ESTIMATE NORMAL
[2019-06-14] MEDS: LEVOFLOXACIN 250MG TABLET PO SCH (11:56)
[2019-06-14] MEDS ORDERED: ONDANSETRON HCL 4MG TABLET PO PRN (13:15)
[2019-06-14] MEDS ORDERED: ACETAMINOPHEN 650MG/20.3ML UDC PO PRN (13:15)
[2019-06-14] MEDS ORDERED: DIPHENHYDRAMINE 25MG CAPSULE PO PRN (13:15)
[2019-06-14] MEDS: ENOXAPARIN 80MG/0.8ML SYR SUBCUT SCH (13:20)
[2019-06-14] MEDS ORDERED: ACETAMINOPHEN 325MG TABLET PO PRN (16:00)
[2019-06-14 20:00] VITALS: BP 132/63
[2019-06-14] MEDS: IRON SUCROSE COMPLEX 100 MG in SODIUM CHLORIDE 0.9% 100 ML IV SCH (23:08)
[2019-06-15] MEDS: LEVOTHYROXINE SODIUM 25MCG TABLET PO SCH (06:10)
[2019-06-15 07:57] VITALS: BP 131/64
[2019-06-15] MEDS: CYANOCOBALAMIN 1000MCG/ML VIAL IM SCH (08:33)
[2019-06-15] MEDS: FAMOTIDINE 20MG TABLET PO SCH (08:33)
[2019-06-15] MEDS: METOPROLOL TARTRATE 25MG TABLET PO SCH (08:33)
[2019-06-15] MEDS: MUPIROCIN 2% OINT 22GM NS SCH ×2 (08:35→21:27)
[2019-06-15] MEDS: LEVOFLOXACIN 250MG TABLET PO SCH (11:08)
[2019-06-15] MEDS: FERROUS SULFATE 325MG TABLET PO SCH ×2 (12:07→16:30)
[2019-06-15] MEDS: ENOXAPARIN 80MG/0.8ML SYR SUBCUT SCH (12:08)
[2019-06-15 20:00] VITALS: BP 134/68
[2019-06-16 06:03] LABS: HEMATOCRIT. 27.7 % (36.0-48.0); MEAN CORPUSCULAR HEMOGLOBIN 30.3 pg (28.0-32.0); MEAN CORPUSCULAR VOLUME 92.5 fL (81.0-99.0); MEAN PLATELET VOLUME 9.5 fl (7.4-10.4); PLATELET 303 x1000/uL (130-400); RED BLOOD CELL COUNT 2.99 mill/uL (4.2-5.4); RED CELL DISTRIBUTION WIDTH 17.7 % (11.6-14.6)
[2019-06-16] MEDS: LEVOTHYROXINE SODIUM 25MCG TABLET PO SCH (06:06)
[2019-06-16 07:00] VITALS: BP 143/74
[2019-06-16] MEDS: METOPROLOL TARTRATE 25MG TABLET PO SCH (08:38)
[2019-06-16] MEDS: FERROUS SULFATE 325MG TABLET PO SCH ×3 (08:38→16:43)
[2019-06-16] MEDS: FAMOTIDINE 20MG TABLET PO SCH (08:38)
[2019-06-16] MEDS: CYANOCOBALAMIN 1000MCG/ML VIAL IM SCH (08:38)
[2019-06-16] MEDS: MUPIROCIN 2% OINT 22GM NS SCH ×2 (08:41→21:19)
[2019-06-16] MEDS: LEVOFLOXACIN 250MG TABLET PO SCH (11:12)
[2019-06-16] MEDS: APIXABAN 5 MG TABLET PO SCH ×2 (13:07→21:18)
[2019-06-16 16:28] LABS: PLATELET ESTIMATE NORMAL
[2019-06-16 20:00] VITALS: BP 139/69
[2019-06-16] MEDS: SULFAMETHOXAZOLE/TRIMETHOPRIM 400/80MG TAB PO SCH (21:18)
[2019-06-16] MEDS: EPOETIN ALFA 10000UNITS/ML VIAL SUBCUT SCH (21:19)
[2019-06-17 04:11] LABS: 25-HYDROXY VITAMIN D3 14 ng/mL (.)
[2019-06-17] MEDS: LEVOTHYROXINE SODIUM 25MCG TABLET PO SCH (06:05)
[2019-06-17 06:53] LABS: HEMATOCRIT. 25.8 % (36.0-48.0); HEMOGLOBIN. 8.4 g/dL (12.0-16.0); MEAN CORPUSCULAR HEMOGLOBIN 30.6 pg (28.0-32.0); MEAN CORPUSCULAR VOLUME 93.8 fL (81.0-99.0); MEAN PLATELET VOLUME 9.4 fl (7.4-10.4); PLATELET 242 x1000/uL (130-400); RED BLOOD CELL COUNT 2.75 mill/uL (4.2-5.4); RED CELL DISTRIBUTION WIDTH 17.6 % (11.6-14.6)
[2019-06-17 08:19] VITALS: BP 138/69
[2019-06-17] MEDS: CYANOCOBALAMIN 1000MCG/ML VIAL IM SCH (08:37)
[2019-06-17] MEDS: SULFAMETHOXAZOLE/TRIMETHOPRIM 400/80MG TAB PO SCH ×2 (08:38→21:54)
[2019-06-17] MEDS: FAMOTIDINE 20MG TABLET PO SCH (08:38)
[2019-06-17] MEDS: METOPROLOL TARTRATE 25MG TABLET PO SCH (08:38)
[2019-06-17] MEDS: APIXABAN 5 MG TABLET PO SCH ×2 (08:38→21:55)
[2019-06-17] MEDS: MUPIROCIN 2% OINT 22GM NS SCH ×2 (08:39→21:55)
[2019-06-17] MEDS: FERROUS SULFATE 325MG TABLET PO SCH ×3 (08:39→16:37)
[2019-06-17 17:26] LABS: PLATELET ESTIMATE NORMAL
[2019-06-17 20:00] VITALS: BP 138/62
[2019-06-18] MEDS: LEVOTHYROXINE SODIUM 25MCG TABLET PO SCH (06:04)
[2019-06-18 08:29] VITALS: BP 132/65
[2019-06-18] MEDS: CYANOCOBALAMIN 1000MCG/ML VIAL IM SCH (09:00)
[2019-06-18] MEDS: MUPIROCIN 2% OINT 22GM NS SCH ×2 (09:00→21:55)
[2019-06-18] MEDS: FAMOTIDINE 20MG TABLET PO SCH (10:34)
[2019-06-18] MEDS: METOPROLOL TARTRATE 25MG TABLET PO SCH (10:34)
[2019-06-18] MEDS: SULFAMETHOXAZOLE/TRIMETHOPRIM 400/80MG TAB PO SCH ×2 (10:34→21:55)
[2019-06-18] MEDS: APIXABAN 5 MG TABLET PO SCH ×2 (10:35→21:54)
[2019-06-18] MEDS: FERROUS SULFATE 325MG TABLET PO SCH ×3 (10:35→17:16)
[2019-06-18 12:17] LABS: HEMOGLOBIN. 9.7 g/dL (12.0-16.0); MEAN CORPUSCULAR HEMOGLOBIN 31.1 pg (28.0-32.0); MEAN CORPUSCULAR VOLUME 96.3 fL (81.0-99.0); MEAN PLATELET VOLUME 9.3 fl (7.4-10.4); PLATELET 256 x1000/uL (130-400); RED BLOOD CELL COUNT 3.11 mill/uL (4.2-5.4); RED CELL DISTRIBUTION WIDTH 18.3 % (11.6-14.6)
[2019-06-18 17:15] LABS: PLATELET ESTIMATE NORMAL
[2019-06-18 20:00] VITALS: BP 188/62
[2019-06-19 06:24] LABS: HEMATOCRIT. 25.4 % (36.0-48.0); HEMOGLOBIN. 8.3 g/dL (12.0-16.0); MEAN CORPUSCULAR VOLUME 95.1 fL (81.0-99.0); MEAN PLATELET VOLUME 9.5 fl (7.4-10.4); PLATELET 216 x1000/uL (130-400); RED BLOOD CELL COUNT 2.67 mill/uL (4.2-5.4); RED CELL DISTRIBUTION WIDTH 19.1 % (11.6-14.6)
[2019-06-19] MEDS: LEVOTHYROXINE SODIUM 25MCG TABLET PO SCH (06:32)
[2019-06-19 08:07] VITALS: BP 152/51
[2019-06-19] MEDS: SULFAMETHOXAZOLE/TRIMETHOPRIM 400/80MG TAB PO SCH ×2 (08:55→21:04)
[2019-06-19] MEDS: FAMOTIDINE 20MG TABLET PO SCH (08:55)
[2019-06-19] MEDS: APIXABAN 5 MG TABLET PO SCH ×2 (08:55→21:04)
[2019-06-19] MEDS: FERROUS SULFATE 325MG TABLET PO SCH ×3 (08:55→16:51)
[2019-06-19] MEDS: METOPROLOL TARTRATE 25MG TABLET PO SCH (08:56)
[2019-06-19 10:03] LABS: PLATELET ESTIMATE NORMAL
[2019-06-19 20:00] VITALS: BP 136/55
[2019-06-20] MEDS: LEVOTHYROXINE SODIUM 25MCG TABLET PO SCH (06:07)
[2019-06-20 08:00] VITALS: BP 138/63
[2019-06-20] MEDS: FERROUS SULFATE 325MG TABLET PO SCH ×3 (08:07→18:30)
[2019-06-20] MEDS: FAMOTIDINE 20MG TABLET PO SCH (08:07)
[2019-06-20] MEDS: METOPROLOL TARTRATE 25MG TABLET PO SCH (08:07)
[2019-06-20] MEDS ORDERED: SODIUM CHLORIDE 0.45% 1,000 ML IV SCH (09:45)
[2019-06-20] MEDS: APIXABAN 5 MG TABLET PO SCH ×2 (11:52→21:01)
[2019-06-20 18:05] LABS: CHLORIDE 113 mEq/L (98-107)
[2019-06-20 18:09] LABS: HEMATOCRIT 29.4 % (36.0-48.0); HEMOGLOBIN 9.3 g/dL (12.0-16.0); MEAN CORPUSCULAR HEMOGLOBIN 30.2 pg (28.0-32.0); MEAN CORPUSCULAR VOLUME 95.9 fL (81.0-99.0); PLATELET 235 x1000/uL (130-400); RED BLOOD CELL COUNT 3.07 mill/uL (4.2-5.4); RED CELL DISTRIBUTION WIDTH 19.2 % (11.6-14.6)
[2019-06-20 20:00] VITALS: BP 108/50
[2019-06-21] MEDS: LEVOTHYROXINE SODIUM 25MCG TABLET PO SCH (06:02)
[2019-06-21 07:18] LABS: BASOPHILS % 1.2 % (0.0-2.0); EOSINOPHILS % 7.2 % (0.0-5.0); HEMATOCRIT. 26.2 % (36.0-48.0); HEMOGLOBIN. 8.6 g/dL (12.0-16.0); LYMPHOCYTES % 14.1 % (20.0-50.0); MEAN CORPUSCULAR HEMOGLOBIN 30.6 pg (28.0-32.0); MEAN CORPUSCULAR VOLUME 93.6 fL (81.0-99.0); MEAN PLATELET VOLUME 9.5 fl (7.4-10.4); MONOCYTES % 12.4 % (2.0-8.0); NEUTROPHILS % 65.1 % (40.0-76.0); PLATELET 211 x1000/uL (130-400); RED CELL DISTRIBUTION WIDTH 18.8 % (11.6-14.6)
[2019-06-21 10:51] VITALS: BP 127/62
[2019-06-21] MEDS: APIXABAN 5 MG TABLET PO SCH (11:09)
[2019-06-21] MEDS: FERROUS SULFATE 325MG TABLET PO SCH (11:10)
[2019-06-21] MEDS: METOPROLOL TARTRATE 25MG TABLET PO SCH (11:10)
[2019-06-21] MEDS: FAMOTIDINE 20MG TABLET PO SCH (11:10)
[2019-06-21 11:55] VITALS: BP 150/43
[2019-06-23] MEDS ORDERED: APIXABAN 5 MG TABLET PO SCH (09:00)
== END 2019-06-21 14:00 | disposition home health service (06) | DRG 947 ==
PROVIDERS: ADMIT Physical Medicine & Rehabilitation Spinal Cord Injury Medicine; ATTEND Family Medicine Adult Medicine
PROC: 30233N1 Transfusion of Nonautologous Red Blood Cells into Peripheral Vein, Percutaneous Approach (ICD-10-PCS; principal; 2019-06-12)
DX: R53.81 Other malaise (principal); A41.02 Sepsis due to Methicillin resistant Staphylococcus aureus; K57.80 Diverticulitis of intestine, part unspecified, with perforation and abscess without bleeding; N17.9 Acute kidney failure, unspecified; E46 Unspecified protein-calorie malnutrition; E87.2 Acidosis; I82.403 Acute embolism and thrombosis of unspecified deep veins of lower extremity, bilateral; N39.0 Urinary tract infection, site not specified; K66.0 Peritoneal adhesions (postprocedural) (postinfection); R26.9 Unspecified abnormalities of gait and mobility; G62.9 Polyneuropathy, unspecified; E03.9 Hypothyroidism, unspecified; D69.6 Thrombocytopenia, unspecified; D72.829 Elevated white blood cell count, unspecified; F06.31 Mood disorder due to known physiological condition with depressive features; D50.9 Iron deficiency anemia, unspecified; E78.5 Hyperlipidemia, unspecified; I12.9 Hypertensive chronic kidney disease with stage 1 through stage 4 chronic kidney disease, or unspecified chronic kidney disease; N18.9 Chronic kidney disease, unspecified; I48.0 Paroxysmal atrial fibrillation; B95.62 Methicillin resistant Staphylococcus aureus infection as the cause of diseases classified elsewhere; E55.9 Vitamin D deficiency, unspecified; Z93.3 Colostomy status; Z90.49 Acquired absence of other specified parts of digestive tract; Z95.0 Presence of cardiac pacemaker; Z68.25 Body mass index [BMI] 25.0-25.9, adult
CPT/HCPCS: 36415; 80048; 81003; 82270; 82306; 82607; 82728; 82746; 83540; 83550; 83735; 84100; 84134; 84443; 85027; 85044; 86850; 86900; 86920; 87077; 92610; 93970; 97110; 97116; 97162; 97166; 97530; 97535; A6261; J0885; J1650; J3420; J7040; J7050; P9016

== ENCOUNTER 2021-09-27 16:36 | Inpatient (IN) | payer MEDICARE, MEDICAID ==
[~2021-09-27] VITALS: Ht 160 cm; Wt 73.2 kg
[~2021-09-27 16:36] MED LIST changes: -ASPI-1393 PO; +ASPI-1497 PO
[2021-09-27] MEDS ORDERED: LACTATED RINGERS 1,000 ML IV SCH (17:48)
[2021-09-27 18:50] LABS: BASOPHILS % 0.1 % (0.0-2.0); EOSINOPHILS % 0.1 % (0.0-5.0); HEMATOCRIT. 35.8 % (36.0-48.0); HEMOGLOBIN. 11.7 g/dL (12.0-16.0); LYMPHOCYTES % 8.2 % (20.0-50.0); MEAN CORPUSCULAR HEMOGLOBIN 32.3 pg (28.0-32.0); MEAN CORPUSCULAR VOLUME 99.3 fL (81.0-99.0); MEAN PLATELET VOLUME 10.8 fl (7.4-10.4); MONOCYTES % 4.1 % (2.0-8.0); NEUTROPHILS % 87.5 % (40.0-76.0); PLATELET 103 x1000/uL (130-400); RED BLOOD CELL COUNT 3.61 mill/uL (4.2-5.4); RED CELL DISTRIBUTION WIDTH 15.6 % (11.6-14.6)
[2021-09-27 23:25] VITALS: BP 150/85
[2021-09-28] VITALS: BP 150/85
[2021-09-28] MEDS ORDERED: NALOXONE HCL 0.4 MG/ML 1ML VIAL IV PRN (02:45)
[2021-09-28] MEDS ORDERED: HYDROCODONE/ACETAMINOPHEN 5/325MG TABLET PO PRN (02:45)
[2021-09-28] MEDS ORDERED: ONDANSETRON 4MG ODT PO PRN (02:45)
[2021-09-28] MEDS: SODIUM CHLORIDE 0.9% 1,000 ML IV SCH ×2 (03:32→12:45)
[2021-09-28 08:00] VITALS: BP 163/92
[2021-09-28] MEDS ORDERED: AMLODIPINE 5MG TABLET PO SCH (09:00)
[2021-09-28] MEDS ORDERED: DIATR MEGLU/DIATRIZOATE SOLN 30ML PO SCH (09:00)
[2021-09-28] MEDS: FAMOTIDINE 20MG TABLET PO SCH (09:37)
[2021-09-28 12:00] VITALS: BP 140/76
[2021-09-28 15:32] LABS: HEMATOCRIT. 32.7 % (36.0-48.0); HEMOGLOBIN. 10.7 g/dL (12.0-16.0); MEAN CORPUSCULAR HEMOGLOBIN 32.6 pg (28.0-32.0); MEAN CORPUSCULAR VOLUME 99.3 fL (81.0-99.0); PLATELET 80 x1000/uL (130-400); RED BLOOD CELL COUNT 3.29 mill/uL (4.2-5.4); RED CELL DISTRIBUTION WIDTH 16.2 % (11.6-14.6)
[2021-09-28 16:00] VITALS: BP 150/71
[2021-09-28 16:06] LABS: CHLORIDE 112 mEq/L (98-107)
[2021-09-28 16:09] LABS: PLATELET ESTIMATE DECREASED
[2021-09-28 16:15] LABS: AMYLASE 86 IU/L (25-115)
[2021-09-28 16:17] LABS: CREATINE KINASE 114 IU/L (26-192)
[2021-09-28] MEDS ORDERED: POTASSIUM CHLORIDE INJ 40 MEQ in DEXT 5% WATER 500 ML IV ONE (16:45)
[2021-09-28] MEDS: KCL 20MEQ/100ML PREMIX 100 ML IV SCH ×2 (18:30→20:32)
[2021-09-28] MEDS: SODIUM CHLORIDE 0.45% 1,000 ML IV SCH (18:30)
[2021-09-28 20:00] VITALS: BP 130/86
[2021-09-29] VITALS: BP 143/65
[2021-09-29] MEDS: SODIUM CHLORIDE 0.45% 1,000 ML IV SCH (03:30)
[2021-09-29 04:00] VITALS: BP 158/84
[2021-09-29 06:50] LABS: HEMATOCRIT. 31.7 % (36.0-48.0); MEAN CORPUSCULAR HEMOGLOBIN 33.8 pg (28.0-32.0); MEAN CORPUSCULAR VOLUME 97.2 fL (81.0-99.0); MEAN PLATELET VOLUME 9.9 fl (7.4-10.4); PLATELET 68 x1000/uL (130-400); RED BLOOD CELL COUNT 3.26 mill/uL (4.2-5.4); RED CELL DISTRIBUTION WIDTH 16.2 % (11.6-14.6)
[2021-09-29 07:01] LABS: FOLIC ACID (FOLATE) SERUM 3.7 ng/mL (>5.38)
[2021-09-29] MEDS ORDERED: POTASSIUM CHLORIDE 20MEQ/PACKET PO NR (07:15)
[2021-09-29 08:00] VITALS: BP 146/75
[2021-09-29] MEDS: FAMOTIDINE 20MG TABLET PO SCH (09:25)
[2021-09-29] MEDS: AMLODIPINE 5MG TABLET PO SCH ×2 (09:25→17:45)
[2021-09-29] MEDS: FOLIC ACID 1MG TABLET PO SCH (11:23)
[2021-09-29 12:00] VITALS: BP 106/76
[2021-09-29 12:46] LABS: NUCLEATED RED BLOOD CELLS 1 /100 WBC; PLATELET ESTIMATE DECREASED
[2021-09-29 15:22] LABS: CLARITY URINE CLEAR (CLEAR); COLOR URINE YELLOW (YELLOW); KETONES URINE NEGATIVE (NEGATIVE); LEUKOCYTE ESTERASE URINE NEGATIVE (NEGATIVE); NITRITE URINE NEGATIVE (NEGATIVE); OCCULT BLOOD URINE NEGATIVE (NEGATIVE); PROTEIN URINE 2+ (NEGATIVE); SPECIFIC GRAVITY URINE 1.017 (1.005-1.030); UROBILINOGEN URINE 0.2 E.U./dL (0.2-1.0)
[2021-09-29 16:00] VITALS: BP 138/87
[2021-09-29 20:00] VITALS: BP 134/84
[2021-09-30] MEDS: SODIUM CHLORIDE 0.45% 1,000 ML IV SCH (04:00)
[2021-09-30 06:28] LABS: HEMATOCRIT. 32.7 % (36.0-48.0); HEMOGLOBIN. 11.4 g/dL (12.0-16.0); MEAN CORPUSCULAR HEMOGLOBIN 33.6 pg (28.0-32.0); MEAN CORPUSCULAR VOLUME 96.8 fL (81.0-99.0); MEAN PLATELET VOLUME 10.2 fl (7.4-10.4); PLATELET 63 x1000/uL (130-400); RED BLOOD CELL COUNT 3.38 mill/uL (4.2-5.4); RED CELL DISTRIBUTION WIDTH 16.6 % (11.6-14.6)
[2021-09-30 07:00] LABS: PHOSPHORUS 2.2 mg/dL (2.5-4.9)
[2021-09-30 08:00] VITALS: BP 134/83
[2021-09-30 08:10] LABS: ANTI-NUCLEAR ANTIBODIES DIRECT Negative (Negative)
[2021-09-30] MEDS: FOLIC ACID 1MG TABLET PO SCH (09:30)
[2021-09-30] MEDS: AMLODIPINE 5MG TABLET PO SCH ×2 (09:30→17:41)
[2021-09-30] MEDS: FAMOTIDINE 20MG TABLET PO SCH (09:30)
[2021-09-30] MEDS: CYANOCOBALAMIN 1000MCG/ML VIAL IM SCH (09:30)
[2021-09-30] MEDS: DEXTROSE 5% WATER 1,000 ML IV SCH (11:03)
[2021-09-30 11:29] LABS: PLATELET ESTIMATE DECREASED
[2021-09-30 12:00] VITALS: BP 137/80
[2021-09-30 16:00] VITALS: BP 128/79
[2021-09-30 20:00] VITALS: BP 132/81
[2021-10-01] VITALS: BP 125/65
[2021-10-01] MEDS: DEXTROSE 5% WATER 1,000 ML IV SCH ×2 (01:18→18:57)
[2021-10-01 04:00] VITALS: BP 130/61
[2021-10-01 07:19] LABS: BASOPHILS % 0.3 % (0.0-2.0); EOSINOPHILS % 0.3 % (0.0-5.0); HEMATOCRIT. 36.1 % (36.0-48.0); HEMOGLOBIN. 11.9 g/dL (12.0-16.0); LYMPHOCYTES % 9.4 % (20.0-50.0); MEAN CORPUSCULAR HEMOGLOBIN 32.6 pg (28.0-32.0); MEAN CORPUSCULAR VOLUME 98.7 fL (81.0-99.0); MEAN PLATELET VOLUME 10.2 fl (7.4-10.4); MONOCYTES % 2.5 % (2.0-8.0); NEUTROPHILS % 87.5 % (40.0-76.0); PLATELET 55 x1000/uL (130-400); RED BLOOD CELL COUNT 3.65 mill/uL (4.2-5.4)
[2021-10-01 08:00] VITALS: BP 121/75
[2021-10-01] MEDS: FOLIC ACID 1MG TABLET PO SCH (10:33)
[2021-10-01] MEDS: AMLODIPINE 5MG TABLET PO SCH ×2 (10:34→17:33)
[2021-10-01] MEDS: CYANOCOBALAMIN 1000MCG/ML VIAL IM SCH (10:34)
[2021-10-01] MEDS: FAMOTIDINE 20MG TABLET PO SCH (10:34)
[2021-10-01] MEDS ORDERED: POTASSIUM CHLORIDE 20MEQ TABLET SR PO NR (10:45)
[2021-10-01 12:00] VITALS: BP 120/79
[2021-10-01 14:55] LABS: PHOSPHORUS 1.5 mg/dL (2.5-4.9)
[2021-10-01 16:00] VITALS: BP 127/75
[2021-10-01 20:00] VITALS: BP 99/65
[2021-10-02] VITALS: BP 112/62
[2021-10-02 04:00] VITALS: BP 124/63
[2021-10-02] MEDS: DEXTROSE 5% WATER 1,000 ML IV SCH (04:57)
[2021-10-02 08:00] VITALS: BP 115/69
[2021-10-02] MEDS: FOLIC ACID 1MG TABLET PO SCH (08:32)
[2021-10-02] MEDS: FAMOTIDINE 20MG TABLET PO SCH (08:32)
[2021-10-02] MEDS: CYANOCOBALAMIN 1000MCG/ML VIAL IM SCH (08:32)
[2021-10-02] MEDS: AMLODIPINE 5MG TABLET PO SCH ×2 (08:32→16:53)
[2021-10-02 08:57] LABS: HEMATOCRIT. 34.9 % (36.0-48.0); HEMOGLOBIN. 11.5 g/dL (12.0-16.0); MEAN CORPUSCULAR HEMOGLOBIN 32.2 pg (28.0-32.0); MEAN CORPUSCULAR VOLUME 97.4 fL (81.0-99.0); RED BLOOD CELL COUNT 3.58 mill/uL (4.2-5.4); RED CELL DISTRIBUTION WIDTH 16.2 % (11.6-14.6)
[2021-10-02 09:07] LABS: PLATELET 43 x1000/uL (130-400)
[2021-10-02] MEDS ORDERED: POTASSIUM CHLORIDE 20MEQ TABLET SR PO NR (09:45)
[2021-10-02 11:34] LABS: NUCLEATED RED BLOOD CELLS 1 /100 WBC
[2021-10-02 11:35] LABS: PLATELET ESTIMATE MARKEDLY DECREASED
[2021-10-02 12:00] VITALS: BP 86/58
[2021-10-02 16:00] VITALS: BP 87/54
[2021-10-02] MEDS ORDERED: SODIUM CHLORIDE 0.9% 500 ML IV NR (17:45)
[2021-10-02 20:00] VITALS: BP 109/67
[2021-10-03] VITALS: BP 92/56
[2021-10-03 08:00] VITALS: BP 102/62
[2021-10-03] MEDS: AMLODIPINE 5MG TABLET PO SCH ×2 (09:00→17:00)
[2021-10-03] MEDS: FAMOTIDINE 20MG TABLET PO SCH (09:54)
[2021-10-03] MEDS: FOLIC ACID 1MG TABLET PO SCH (09:54)
[2021-10-03] MEDS: CYANOCOBALAMIN 1000MCG/ML VIAL IM SCH (09:54)
[2021-10-03 12:00] VITALS: BP 130/58
[2021-10-03] MEDS ORDERED: POLYETHYLENE GLYCOL 3350 (17GM) 1 DOSE PACK PO SCH (13:00)
[2021-10-03] MEDS ORDERED: LACTULOSE 20G/30ML UDC PO PRN (13:00)
[2021-10-03] MEDS ORDERED: SENNOSIDES 8.6MG TABLET PO PRN (13:00)
[2021-10-03] MEDS: DOCUSATE SODIUM 100MG CAPSULE PO SCH (13:56)
[2021-10-03] MEDS ORDERED: POTASSIUM CHLORIDE INJ 40 MEQ in DEXT 5% WATER 250 ML IV ONE (14:00)
[2021-10-03] MEDS: DEXTROSE 5% WATER 1,000 ML IV SCH ×2 (14:34→20:50)
[2021-10-03 16:00] VITALS: BP 90/60
[2021-10-03] MEDS: KCL 20MEQ/100ML X 2 FOR TOTAL KCL 40MEQ/200ML IV SCH (17:12)
[2021-10-03 18:10] LABS: HEMATOCRIT. 35.1 % (36.0-48.0); HEMOGLOBIN. 11.5 g/dL (12.0-16.0); MEAN CORPUSCULAR HEMOGLOBIN 31.9 pg (28.0-32.0); MEAN CORPUSCULAR VOLUME 97.8 fL (81.0-99.0); MEAN PLATELET VOLUME 10.1 fl (7.4-10.4); RED BLOOD CELL COUNT 3.59 mill/uL (4.2-5.4); RED CELL DISTRIBUTION WIDTH 15.9 % (11.6-14.6)
[2021-10-03 18:18] LABS: PLATELET 30 x1000/uL (130-400)
[2021-10-03 19:18] LABS: PLATELET ESTIMATE MARKEDLY DECREASED
[2021-10-03] MEDS ORDERED: SODIUM CHLORIDE 0.9% 500 ML IV NR (19:45)
[2021-10-03 20:00] VITALS: BP 100/62
[2021-10-04] VITALS (15 sets, daily range): BP systolic 83–132; BP diastolic 47–64
[2021-10-04 05:58] LABS: HEMOGLOBIN. 11.2 g/dL (12.0-16.0); MEAN CORPUSCULAR HEMOGLOBIN 33.4 pg (28.0-32.0); MEAN CORPUSCULAR VOLUME 95.6 fL (81.0-99.0); RED BLOOD CELL COUNT 3.35 mill/uL (4.2-5.4); RED CELL DISTRIBUTION WIDTH 16.3 % (11.6-14.6)
[2021-10-04] MEDS: KCL 20MEQ/100ML X 2 FOR TOTAL KCL 40MEQ/200ML IV SCH (06:21)
[2021-10-04 06:44] LABS: PLATELET 31 x1000/uL (130-400)
[2021-10-04 06:45] LABS: MEAN PLATELET VOLUME 11.2 fl (7.4-10.4)
[2021-10-04] MEDS: CYANOCOBALAMIN 1000MCG/ML VIAL IM SCH (08:33)
[2021-10-04] MEDS: DOCUSATE SODIUM 100MG CAPSULE PO SCH (08:51)
[2021-10-04] MEDS: FAMOTIDINE 20MG TABLET PO SCH (08:51)
[2021-10-04] MEDS: FOLIC ACID 1MG TABLET PO SCH (08:51)
[2021-10-04] MEDS ORDERED: AMLODIPINE 5MG TABLET PO SCH (09:00)
[2021-10-04] MEDS ORDERED: SODIUM CHLORIDE 0.9% 1000ML BAG (SEPSIS BOLUS) IV NR (09:00)
[2021-10-04 09:33] LABS: PLATELET ESTIMATE MARKEDLY DECREASED
[2021-10-04] MEDS: MIDODRINE HCL 2.5MG TABLET PO SCH ×3 (10:00→17:00)
[2021-10-04 10:49] LABS: CREATINE KINASE 450 IU/L (26-192)
[2021-10-04] MEDS: CEFEPIME 1,000 MG in DEXTROSE 5% WATER 50 ML IV SCH (11:37)
[2021-10-04] MEDS: DEXTROSE 5% WATER 1,000 ML IV SCH (14:28)
[2021-10-05] VITALS (16 sets, daily range): BP systolic 91–128; BP diastolic 43–68
[2021-10-05 05:23] LABS: CLARITY URINE TURBID (CLEAR); COLOR URINE ORANGE (YELLOW); KETONES URINE TRACE (NEGATIVE); LEUKOCYTE ESTERASE URINE 1+ (NEGATIVE); NITRITE URINE NEGATIVE (NEGATIVE); OCCULT BLOOD URINE 3+ (NEGATIVE); PROTEIN URINE 2+ (NEGATIVE); SPECIFIC GRAVITY URINE 1.017 (1.005-1.030); UROBILINOGEN URINE 0.2 E.U./dL (0.2-1.0)
[2021-10-05] MEDS: DEXTROSE 5% WATER 1,000 ML IV SCH (06:28)
[2021-10-05 07:46] LABS: HEMATOCRIT. 30.7 % (36.0-48.0); HEMOGLOBIN. 10.5 g/dL (12.0-16.0); MEAN CORPUSCULAR HEMOGLOBIN 33.2 pg (28.0-32.0); MEAN CORPUSCULAR VOLUME 96.8 fL (81.0-99.0); MEAN PLATELET VOLUME 10.9 fl (7.4-10.4); RED BLOOD CELL COUNT 3.17 mill/uL (4.2-5.4); RED CELL DISTRIBUTION WIDTH 16.7 % (11.6-14.6)
[2021-10-05 08:16] LABS: PLATELET 24 x1000/uL (130-400)
[2021-10-05 08:31] LABS: PHOSPHORUS 1.8 mg/dL (2.5-4.9)
[2021-10-05] MEDS: CYANOCOBALAMIN 1000MCG/ML VIAL IM SCH (08:32)
[2021-10-05] MEDS: DOCUSATE SODIUM 100MG CAPSULE PO SCH (09:00)
[2021-10-05] MEDS: FOLIC ACID 1MG TABLET PO SCH (09:00)
[2021-10-05] MEDS: FAMOTIDINE 20MG TABLET PO SCH (09:00)
[2021-10-05] MEDS: CEFEPIME 1,000 MG in DEXTROSE 5% WATER 50 ML IV SCH (10:41)
[2021-10-05] MEDS: MIDODRINE HCL 5MG TABLET PO SCH ×3 (13:00→17:12)
[2021-10-05 17:22] LABS: PLATELET ESTIMATE MARKEDLY DECREASED
[2021-10-06] VITALS (13 sets, daily range): BP systolic 90–137; BP diastolic 45–79
[2021-10-06] MEDS: DEXTROSE 5% WATER 1,000 ML IV SCH ×2 (02:18→16:22)
[2021-10-06 07:38] LABS: HEMATOCRIT. 27.3 % (36.0-48.0); HEMOGLOBIN. 9.6 g/dL (12.0-16.0); MEAN CORPUSCULAR HEMOGLOBIN 33.5 pg (28.0-32.0); MEAN CORPUSCULAR VOLUME 95.1 fL (81.0-99.0); MEAN PLATELET VOLUME 10.7 fl (7.4-10.4); RED BLOOD CELL COUNT 2.87 mill/uL (4.2-5.4); RED CELL DISTRIBUTION WIDTH 16.1 % (11.6-14.6)
[2021-10-06] MEDS ORDERED: POTASSIUM CHLORIDE 20MEQ TABLET SR PO SCH (08:15)
[2021-10-06] MEDS ORDERED: POTASSIUM CHLORIDE 20MEQ/PACKET PO ONE (08:45)
[2021-10-06] MEDS: MIDODRINE HCL 5MG TABLET PO SCH ×3 (08:46→16:22)
[2021-10-06] MEDS: FOLIC ACID 1MG TABLET PO SCH (08:46)
[2021-10-06] MEDS: FAMOTIDINE 20MG TABLET PO SCH (08:46)
[2021-10-06] MEDS: CYANOCOBALAMIN 1000MCG/ML VIAL IM SCH (08:46)
[2021-10-06] MEDS: DOCUSATE SODIUM 100MG CAPSULE PO SCH (08:47)
[2021-10-06 09:10] LABS: PLATELET ESTIMATE MARKEDLY DECREASED
[2021-10-06 09:11] LABS: PLATELET 48 x1000/uL (130-400)
[2021-10-06] MEDS ORDERED: MORPHINE SULFATE 2 MG/ML CPJ (NOT FOR IM USE) IV PRN (11:00)
[2021-10-06] MEDS ORDERED: NALOXONE HCL 0.4MG/ML VIAL IV PRN (11:00)
[2021-10-06] MEDS: CEFEPIME 1,000 MG in DEXTROSE 5% WATER 50 ML IV SCH (11:25)
[2021-10-06] MEDS: METOCLOPRAMIDE HCL 10MG/2ML VIAL IV SCH (20:05)
[2021-10-07] VITALS (12 sets, daily range): BP systolic 89–123; BP diastolic 51–71
[2021-10-07] MEDS: METOCLOPRAMIDE HCL 10MG/2ML VIAL IV SCH ×4 (00:04→18:27)
[2021-10-07] MEDS: FOLIC ACID 1MG TABLET PO SCH (08:19)
[2021-10-07] MEDS: FAMOTIDINE 20MG TABLET PO SCH (08:19)
[2021-10-07] MEDS: DOCUSATE SODIUM 100MG CAPSULE PO SCH (08:19)
[2021-10-07] MEDS: MIDODRINE HCL 5MG TABLET PO SCH ×4 (08:22→18:27)
[2021-10-07] MEDS: DEXTROSE 5% WATER 1,000 ML IV SCH (08:22)
[2021-10-07] MEDS ORDERED: MIDODRINE HCL 5MG TABLET PO NR (10:15)
[2021-10-07] MEDS: CEFEPIME 1,000 MG in DEXTROSE 5% WATER 50 ML IV SCH (11:16)
[2021-10-07 11:28] LABS: HEMATOCRIT. 25.9 % (36.0-48.0); HEMOGLOBIN. 8.9 g/dL (12.0-16.0); MEAN CORPUSCULAR HEMOGLOBIN 32.6 pg (28.0-32.0); MEAN CORPUSCULAR VOLUME 94.8 fL (81.0-99.0); MEAN PLATELET VOLUME 10.2 fl (7.4-10.4); RED BLOOD CELL COUNT 2.73 mill/uL (4.2-5.4); RED CELL DISTRIBUTION WIDTH 16.6 % (11.6-14.6)
[2021-10-07 14:54] LABS: PLATELET ESTIMATE MARKEDLY DECREASED
[2021-10-07 14:55] LABS: PLATELET 31 x1000/uL (130-400)
[2021-10-08] VITALS (12 sets, daily range): BP systolic 89–109; BP diastolic 48–62
[2021-10-08] MEDS: METOCLOPRAMIDE HCL 10MG/2ML VIAL IV SCH
[2021-10-08] MEDS: DEXTROSE 5% WATER 1,000 ML IV SCH (01:23)
[2021-10-08] MEDS: DOCUSATE SODIUM 100MG CAPSULE PO SCH (08:23)
[2021-10-08] MEDS: PANTOPRAZOLE SODIUM 40 MG/VIAL IV SCH (08:55)
[2021-10-08] MEDS: FOLIC ACID 1MG TABLET PO SCH (08:56)
[2021-10-08] MEDS: MIDODRINE HCL 5MG TABLET PO SCH ×3 (08:56→18:26)
[2021-10-08] MEDS: CEFEPIME 1,000 MG in DEXTROSE 5% WATER 50 ML IV SCH (11:23)
[2021-10-08 12:36] LABS: HEMATOCRIT. 25.1 % (36.0-48.0); HEMOGLOBIN. 8.5 g/dL (12.0-16.0); MEAN CORPUSCULAR HEMOGLOBIN 32.6 pg (28.0-32.0); MEAN CORPUSCULAR VOLUME 96.8 fL (81.0-99.0); MEAN PLATELET VOLUME 9.9 fl (7.4-10.4); RED CELL DISTRIBUTION WIDTH 16.5 % (11.6-14.6)
[2021-10-08 14:00] LABS: PLATELET ESTIMATE MARKEDLY DECREASED
[2021-10-08 14:01] LABS: PLATELET 23 x1000/uL (130-400)
[2021-10-08] MEDS ORDERED: DEXTROSE 5% WATER 1,000 ML IV SCH (21:30)
[2021-10-09] VITALS (10 sets, daily range): BP systolic 82–113; BP diastolic 28–61
[2021-10-09] MEDS: PANTOPRAZOLE SODIUM 40 MG/VIAL IV SCH (09:39)
[2021-10-09] MEDS: MIDODRINE HCL 5MG TABLET PO SCH ×3 (09:40→17:12)
[2021-10-09] MEDS: DOCUSATE SODIUM 100MG CAPSULE PO SCH (09:40)
[2021-10-09] MEDS: FOLIC ACID 1MG TABLET PO SCH (09:40)
[2021-10-09 11:36] LABS: HEPATITIS B SURFACE ANTIGEN NEGATIVE
[2021-10-10] VITALS (13 sets, daily range): BP systolic 90–120; BP diastolic 21–66
[2021-10-10] MEDS: MIDODRINE HCL 5MG TABLET PO SCH ×3 (08:40→18:31)
[2021-10-10] MEDS: FOLIC ACID 1MG TABLET PO SCH (08:40)
[2021-10-10] MEDS: PANTOPRAZOLE SODIUM 40 MG/VIAL IV SCH (08:41)
[2021-10-10] MEDS ORDERED: DOCUSATE SODIUM SUGAR FREE 100MG/10ML UDC NG SCH (09:30)
[2021-10-10 13:13] LABS: HEMATOCRIT. 23.5 % (36.0-48.0); HEMOGLOBIN. 7.8 g/dL (12.0-16.0); MEAN CORPUSCULAR HEMOGLOBIN 32.1 pg (28.0-32.0); MEAN PLATELET VOLUME 9.9 fl (7.4-10.4); RED BLOOD CELL COUNT 2.42 mill/uL (4.2-5.4); RED CELL DISTRIBUTION WIDTH 16.4 % (11.6-14.6)
[2021-10-10 13:24] LABS: PLATELET 12 x1000/uL (130-400)
[2021-10-10 16:50] LABS: PLATELET ESTIMATE MARKEDLY DECREASED
[2021-10-10] MEDS ORDERED: PANTOPRAZOLE SODIUM 40 MG/VIAL IV SCH (21:00)
[2021-10-11 00:09] VITALS: BP 133/60
[2021-10-11] MEDS ORDERED: METRONIDAZOLE 500 MG PREMIX 100 ML IV ONE (11:00)
== END 2021-10-11 05:38 | DRG 374 ==
LOC: ER 16:36 → 6EST 20:43 → EDBEDREQSVC 21:00 → EDBEDREQTM 21:00 → EDBEDREQ 21:00 → ENRESERV 22:32 → 3WST 10-04 05:16
PROVIDERS: ADMIT Internal Medicine; ATTEND Internal Medicine
PROC: 30233R1 Transfusion of Nonautologous Platelets into Peripheral Vein, Percutaneous Approach (ICD-10-PCS; principal; 2021-10-05)
DX: D49.0 Neoplasm of unspecified behavior of digestive system (principal); N17.0 Acute kidney failure with tubular necrosis; G93.41 Metabolic encephalopathy; G82.50 Quadriplegia, unspecified; D61.818 Other pancytopenia; I50.32 Chronic diastolic (congestive) heart failure; I13.0 Hypertensive heart and chronic kidney disease with heart failure and stage 1 through stage 4 chronic kidney disease, or unspecified chronic kidney disease; Z66 Do not resuscitate; N18.9 Chronic kidney disease, unspecified; E87.8 Other disorders of electrolyte and fluid balance, not elsewhere classified; E86.9 Volume depletion, unspecified; G62.9 Polyneuropathy, unspecified; I49.5 Sick sinus syndrome; E03.9 Hypothyroidism, unspecified; E78.5 Hyperlipidemia, unspecified; I48.0 Paroxysmal atrial fibrillation; N28.1 Cyst of kidney, acquired; M81.0 Age-related osteoporosis without current pathological fracture; R62.7 Adult failure to thrive; R13.10 Dysphagia, unspecified; I95.9 Hypotension, unspecified; Z20.822 Contact with and (suspected) exposure to COVID-19; R26.9 Unspecified abnormalities of gait and mobility; T68.XXXA Hypothermia, initial encounter; R53.81 Other malaise; D47.2 Monoclonal gammopathy; Z90.49 Acquired absence of other specified parts of digestive tract; Z86.718 Personal history of other venous thrombosis and embolism; Z95.0 Presence of cardiac pacemaker; Z93.3 Colostomy status; Z79.82 Long term (current) use of aspirin; Z68.28 Body mass index [BMI] 28.0-28.9, adult; Z88.0 Allergy status to penicillin; Z88.8 Allergy status to other drugs, medicaments and biological substances
CPT/HCPCS: 36415; 71045; 74176; 76700; 76770; 80048; 80053; 80076; 81003; 82140; 82150; 82550; 82607; 82728; 82746; 82962; 83540; 83550; 83605; 83735; 84100; 84145; 84484; 85025; 85044; 86038; 86160; 86301; 86703; 86850; 86900; 87426; 92523; 92610; 93005; 93306; 93970; 97162; 97166; 99285; C1893; C9113; J0692; J2270; J2765; J3420; J3480; J3490; J7030; J7040; J7060; J7070; P9034; Q9963